=== PATIENT | female | born 1960 | race Two or more races ===

== ENCOUNTER 2020-02-01 06:04 | Outpatient (REF) | payer MEDICARE, MEDICAID, SELFPAY ==
[2020-02-01 08:09] LABS: Alanine Aminotransferase 30 U/L (0-31); Albumin Level 4.3 g/dL (3.5-5.0); Alkaline Phosphatase 85 U/L (39-117); Anion Gap 11 (12-20); Aspartate Amino Transferase 25 U/L (5-31); Bilirubin Total 0.9 mg/dL (0.0-1.0); Blood Urea Nitrogen 10 mg/dL (9-16); Calcium 8.9 mg/dL (8.4-10.2); Carbon Dioxide 30 mmol/L (22-29); Chloride 104 mmol/L (96-108); Cholesterol 210 mg/dL; Estimated Glomerular Filt Rate > 60; Glucose Fasting 93 mg/dL (60-99); HDL Cholesterol 73 mg/dL; LDL Cholesterol Calculated 123 mg/dl; Potassium 4.4 mmol/l (3.3-5.1); Sodium 141 mmol/L (135-145); Total Protein 7.3 g/dL (6.5-8.0); Triglycerides 74 mg/dL
[2020-02-01 08:32] LABS: Vitamin D 25-OH Total 35.6 ng/mL (>30)
== END 2020-02-01 06:05 | disposition home or self-care (01) ==
LOC: HO.LAB 06:04
PROVIDERS: Visit Provider Internal Medicine
DX: E78.00 Pure hypercholesterolemia, unspecified (principal); E55.9 Vitamin D deficiency, unspecified; I10 Essential (primary) hypertension
CPT/HCPCS: 80053; 80061; 82306

== ENCOUNTER 2020-04-27 07:16 | Emergency (ER) | payer MEDICARE, MEDICAID, SELFPAY ==
[2020-04-27 07:41] VITALS: BP 180/98; PULSE 101; RESP 18; TEMP 36.9; O2SAT 98; BMI 27.2
--- NOTE | 2020-04-27 07:45 | ED.LOWEXIN ---
HPI - Extremity Injury (Lower) General Chief Complaint: Extremity Problem Stated Complaint: lt knee pain Time Seen by Provider: 04/27/20 07:44 Source: patient Mode of arrival: ambulatory Limitations: language barrier History of Present Illness HPI Narrative: History obtained by customer service specialist, patient with left knee pain, denies fever, she feel recently because she felt like the knee was weak. She has been seen by urgent care for hip pain but now having knee pain. MD complaint: knee injury Onset (ago): week(s) Injury: Left: knee Severity: moderate Related Data Home Medications Medication Instructions Recorded Confirmed albuterol sulfate 90 mcg/actuation INHALATION 02/16/20 02/16/20 aerosol inhaler calcium carbonate 600 mg calcium 600 mg PO BID 02/16/20 02/16/20 (1,500 mg) tablet hydrochlorothiazide 12.5 mg capsule 12.5 mg PO QAM 02/16/20 02/16/20 Previous Rx's Medication Instructions Recorded atorvastatin 10 mg tablet 20 mg PO DAILY 90 Days #180 tab 02/16/20 lisinopril 40 mg tablet 40 mg PO DAILY 90 Days #90 tab 02/16/20 cholecalciferol (vitamin D3) 50 50 mcg PO DAILY #30 tab 03/27/20 mcg (2,000 unit) tablet fluticasone propionate 110 2 puff PO BID #12 g 03/27/20 mcg/actuation HFA aerosol inhaler tizanidine 4 mg tablet 4 mg PO TID PRN 30 Days #90 tab 04/21/20 cyclobenzaprine 10 mg PO TID #10 tab 04/27/20 naproxen [Naprosyn] 500 mg PO BID #20 tab 04/27/20 Allergies Allergy/AdvReac Type Severity Reaction Status Date / Time soy [Soy] Allergy Intermediate LIP Verified 02/16/20 09:24 SWELLING ( SOY SAUCE ) terbinafine Allergy Unknown Rash Verified 02/16/20 09:24 duloxetine AdvReac Unknown hallucinati Verified 02/16/20 09:24 ons Review of Systems Constitutional: Constitutional: Reports no additional constitutional complaints Eyes: Eyes: Reports no additional eye complaints ENT: Denies dizziness Cardiovascular: Cardiovascular: Reports no additional cardiovascular complaints Respiratory: Respiratory: Reports as per HPI Gastrointestinal: Gastrointestinal: Reports no additional gastrointestinal complaints Genitourinary: Genitourinary: Reports no additional female genitourinary complaints Musculoskeletal: Musculoskeletal: Reports no additional musculoskeletal complaints Integumentary/Breasts: Skin/Breast: Denies rash Neurologic: Reports system reviewed and no additional complaints, except as documented, Denies dizziness and Denies Sensory deficit (Neuro) Psychiatric: Psychiatric: Denies anxiety [facility] Past Medical History Medical History Essential hypertension Hypovitaminosis D Mild asthma Pure hypercholesterolemia Surgical History History of carpal tunnel release History of tubal ligation S/P PATTI-BSO (total abdominal hysterectomy and bilateral salpingo-oophorectomy) Family History Family History (Updated 02/12/20 @ 09:27 by RICHIE Richardson) Father Colon cancer Mother No problems noted. Maternal Aunt Breast cancer Social History Social History Smoking Status: Never smoker Advance Directives: Yes Advance Directives Information Provided: Yes Advance Directives on File: No Physical Exam Vital Signs: Vital Signs: Last Vital Signs Temp 98.5 F 04/27/20 07:41 Pulse 101 H 04/27/20 07:41 Resp 18 04/27/20 07:41 BP 180/98 H 04/27/20 07:41 Pulse Ox 98 04/27/20 07:41 Body Mass Index 27.2 Const: General: healthy appearing Nutritional Appearance: average body habitus Orientation/consciousness: oriented to person and patient oriented x3 Limitations: no limitations HENMT: Head: Yes normal to inspection Ears: external ears normal General nose exam: Normal external nose present Mouth: Normal oral and palatal mucosa present and oropharynx normal Throat: Yes posterior oropharynx normal Eyes: General: appearance normal, both eyes and all related structures Neck: Other: supple Neck: Yes normal visual inspection Chest: Chest palpation & inspection: normal inspection of the chest Resp: Auscultation: clear to auscultation bilaterally Cardio: Jugular venous distension: no JVD Rate: regular rate Rhythm: regular rhythm Heart sounds: S1 normal heart sound present and S2 normal heart sound present GI: Inspection: Yes normal to inspection Palpation (GI): Soft to palpation, nontender and No hepatosplenomegaly present Auscultation: normal bowel sounds Back/Spine/Pelvis: Other: patient with significant sciatica and SI joint pain Skin: General skin exam: no rashes or lesions noted Neuro: General: oriented to person and patient oriented x3 Cranial nerves: Yes CN's II-XII intact bilaterally Motor exam (neuro): 5/5 motor strength present throughout Sensory Exam: No Sensory deficit (Neuro) Extrem: Other: left knee with no swelling, no erythema, Full range of motion, no anterior draw and no posterior draw. Mild tenderness along joint line General: Yes normal to inspection Psych: Appearance: grossly normal Course Course Course Narrative: resting comfortably MDM - Extremity Injury (Lower) MDM Narrative Medical decision making narrative: impression is sciatica xrays negative Imaging Data lumbar: Radiologist's impression: normal lumbar spine knee: Radiologist's impression: mild djd Discharge Plan Discharge Clinical Impression: Sciatica Qualifiers: Laterality: left Qualified Code(s): M54.32 - Sciatica, left side Patient Disposition: Home, Self-Care Instructions: Sciatica (ED) Prescriptions: New cyclobenzaprine 10 mg tablet 10 mg PO TID Qty: 10 RF: 0 naproxen [Naprosyn] 500 mg tablet 500 mg PO BID Qty: 20 RF: 0 No Action cholecalciferol (vitamin D3) 50 mcg (2,000 unit) tablet 50 mcg PO DAILY Qty: 30 RF: 4 fluticasone propionate [Flovent HFA] 110 mcg/actuation HFA aerosol inhaler 2 puff PO BID Qty: 12 RF: 5 tizanidine 4 mg tablet 4 mg PO TID PRN (Reason: muscle spasticity) 30 Days Qty: 90 RF: 5 hydrochlorothiazide 12.5 mg capsule 12.5 mg PO QAM RF: 0 albuterol sulfate 90 mcg/actuation HFA aerosol inhaler inhalation RF: 0 calcium carbonate 600 mg calcium (1,500 mg) tablet 600 mg PO BID RF: 0 atorvastatin 10 mg tablet 20 mg PO DAILY 90 Days Qty: 180 RF: 3 lisinopril 40 mg tablet 40 mg PO DAILY 90 Days Qty: 90 RF: 3 Referrals: Jania Mattson MD [Primary Care Provider] - 2 days
--- NOTE | 2020-04-27 07:51 | XR_ITS ---
EXAMINATION: XR KNEE, LEFT CLINICAL INFORMATION: Knee pain COMPARISON: None TECHNIQUE: Four views of the left knee. FINDINGS: There is no fracture, dislocation, or destructive process. No focal joint narrowing, subchondral sclerosis, erosive change, or chondrocalcinosis. No suprapatellar effusion. Hoffa's fat pad appears normal. There is some minor spurring at quadriceps insertion patella. XR/XR knee LT 4V IMPRESSION: Mild spurring at quadriceps insertion on patella.
--- NOTE | 2020-04-27 07:51 | XR_ITS ---
EXAMINATION: XR LUMBOSACRAL SPINE CLINICAL INFORMATION: Sciatica COMPARISON: None TECHNIQUE: Three views of the lumbosacral spine. FINDINGS: There is normal vertebral segmentation with 5 nonrib-bearing lumbar vertebrae of normal height and normal lumbar lordosis. There is no lumbar vertebral compression, focal disc narrowing or endplate sclerosis or destructive process. No spondylolisthesis or retrolisthesis. No erosive changes. The SI joints and visualized sacrum are unremarkable. XR/XR lumbar spine 2-3V IMPRESSION: Unremarkable examination.
[2020-04-27] MEDS: Ketorolac Tromethamine 60 MG/2 ML VIAL IM (08:54)
[2020-04-27] MEDS: Cyclobenzaprine HCl 10 MG TABLET PO (08:55)
--- NOTE | 2020-04-27 09:34 | PC.NURSE ---
States pain improved after medication. Resting comfortably on stretcher, awaiting discharge home
[2020-04-27 09:46] VITALS: BP 161/90; PULSE 82; RESP 16; TEMP 36.7; O2SAT 95
== END 2020-04-27 10:44 | disposition home or self-care (01) ==
PROVIDERS: Emergency Provider Emergency Medicine; PCP Internal Medicine
DX: M54.32 Sciatica, left side (principal); M25.562 Pain in left knee; Z79.899 Other long term (current) drug therapy
CPT/HCPCS: 72100; 73564; 96372; 99284; J1885

== ENCOUNTER 2020-05-11 05:54 | Outpatient (REF) | payer MEDICARE, MEDICAID, SELFPAY ==
[2020-05-11 07:52] LABS: Alanine Aminotransferase 54 U/L (0-31); Albumin Level 4.5 g/dL (3.5-5.0); Alkaline Phosphatase 81 U/L (39-117); Anion Gap 11 (12-20); Aspartate Amino Transferase 31 U/L (5-31); Bilirubin Total 1.4 mg/dL (0.0-1.0); Blood Urea Nitrogen 12 mg/dL (9-16); Calcium 9.3 mg/dL (8.4-10.2); Carbon Dioxide 31 mmol/L (22-29); Chloride 103 mmol/L (96-108); Cholesterol 160 mg/dL; Estimated Glomerular Filt Rate > 60; Glucose Fasting 96 mg/dL (60-99); HDL Cholesterol 72 mg/dL; LDL Cholesterol Calculated 75 mg/dl; Potassium 4.3 mmol/L (3.3-5.1); Sodium 141 mmol/L (135-145); Total Protein 7.6 g/dL (6.5-8.0); Triglycerides 68 mg/dL
== END 2020-05-11 05:55 | disposition home or self-care (01) ==
LOC: HO.LAB 05:54
PROVIDERS: Visit Provider Internal Medicine
DX: I10 Essential (primary) hypertension (principal)
CPT/HCPCS: 36415; 80053; 80061

== ENCOUNTER 2020-05-24 08:47 | Outpatient (REF) | payer MEDICARE, MEDICAID, SELFPAY | END 2020-05-24 08:48 | disposition home or self-care (01) | LOC: HO.LAB 08:47 | PROVIDERS: PCP Internal Medicine; Visit Provider Internal Medicine | DX: Z20.822 Contact with and (suspected) exposure to COVID-19 (principal) | CPT/HCPCS: 36415; C9803; U0003; U0005 ==

== ENCOUNTER 2020-06-30 08:00 | Outpatient (RCR) | payer MEDICARE, OTHER, MEDICAID, SELFPAY ==
[2020-06-03 08:15] VITALS: BP 178/97; PULSE 82
--- NOTE | 2020-06-30 14:59 | MHC.PT.DC ---
[facility] [place] [facility] [place] [facility] [place] Office [address] Joyce Victor [address] [phone] F: [phone] F: [phone] F: [phone] F: [phone] Physical Therapy Discharge Report Diagnosis: Left knee pain Left low back pain with sciatica Date of Surgery: na Date of Evaluation: 06/03/20 Date of Discharge: 06/30/20 Treatments to Date: 9 Cancellations to Date: 0 No Shows to Date: 0 Discharge Status: Achieved Goals Improved Function Independent with HEP Discharge Summary: Yoly demonstrates some continued tenderness along ITB but feels like she can self manage her symptoms with self massage and ice. She is independent with HEP and confident with DC on this date. Electronically signed by: Bing Hernandez PT, DPT Please sign and return to therapist. Thank you for your referral.
== END 2020-06-30 15:00 | disposition other institution (70) ==
LOC: HO.PT 08:00
PROVIDERS: PCP Internal Medicine; Visit Provider Internal Medicine
DX: M25.562 Pain in left knee (principal); M54.32 Sciatica, left side
CPT/HCPCS: 97110; 97112; 97140; 97162; 97535

== ENCOUNTER 2020-10-21 16:45 | Day surgery (SDC) | payer OTHER, SELFPAY ==
--- NOTE | ~2020-10-21 | XR_ITS ---
EXAMINATION: LEFT TIB-FIB, LEFT ANKLE CLINICAL INFORMATION: Fall with pain COMPARISON: Left foot 02/08/2017 TECHNIQUE: 2 views left tib-fib, 2 views ankle FINDINGS: There is a spiral fracture involving the proximal fibular diaphysis with ventral displacement and posterior angulation of the distal fragment. There is a spiral fracture through the tibial metaphysis with mild dorsal displacement of the distal fracture fragment. An additional fracture through the posterior malleolus is seen. No ankle or knee joint dislocation is detected. A calcaneal plantar spur is noted. XR/XR tibia fibula LT 2V IMPRESSION: Proximal fibula fracture and distal tibia fracture as described above with additional fracture posterior malleolus.
--- NOTE | ~2020-10-21 | XR_ITS ---
EXAMINATION: LEFT TIB-FIB, LEFT ANKLE CLINICAL INFORMATION: Fall with pain COMPARISON: Left foot 02/08/2017 TECHNIQUE: 2 views left tib-fib, 2 views ankle FINDINGS: There is a spiral fracture involving the proximal fibular diaphysis with ventral displacement and posterior angulation of the distal fragment. There is a spiral fracture through the tibial metaphysis with mild dorsal displacement of the distal fracture fragment. An additional fracture through the posterior malleolus is seen. No ankle or knee joint dislocation is detected. A calcaneal plantar spur is noted. XR/XR ankle LT min 3V IMPRESSION: Proximal fibula fracture and distal tibia fracture as described above with additional fracture posterior malleolus.
--- NOTE | ~2020-10-21 | FL_ITS ---
EXAMINATION: XR FL WITH IMAGES CLINICAL INFORMATION: Fractured tibia. COMPARISON: None TECHNIQUE: Fluoroscopy performed by Dr. Tim Nguyen. Fluoroscopy Time: 0.6 minutes. DAP: 0.0404 mGycm2. Images: 4. FINDINGS: Imaging shows a plate and screw device along the medial tibia. FL/FL guidance in OR IMPRESSION: Fluoroscopy and spot films used for plate and screw device placement.
--- NOTE | 2020-10-21 16:38 | ED.LOWEXIN ---
HPI - Extremity Injury (Lower) General Chief Complaint: Extremity Injury, Lower Stated Complaint: left leg injury Time Seen by Provider: 10/21/20 16:31 Source: patient and EMS Mode of arrival: EMS Limitations: language barrier History of Present Illness HPI Narrative: 60-year-old female presents via EMS for visible lower extremity deformity. Patient was sliding down a slide, heard and felt her leg crack when she hit the ground. She did not hit her head or lose consciousness. She does not report any chest pain, arm or shoulder pain, abdominal pain, pelvic pain, shortness of breath, diaphoresis, or back pain. MD complaint: leg injury Onset (ago): hour(s) (Within the hour of arrival) Type of Injury: blunt Place: street/outdoors Severity: severe Severity scale (1-10): 10 Relieving factors: nothing Exacerbating factors: movement and palpation Context: fall and direct blow Associated symptoms: snap/pop sensation, swelling and unable to bear weight Other symptoms: none Treatments prior to arrival: cold therapy Related Data Home Medications Medication Instructions Recorded Confirmed calcium carbonate 600 mg calcium 600 mg PO BID 02/16/20 10/21/20 (1,500 mg) tablet Flovent HFA 2 puff PO BID PRN 10/21/20 10/21/20 ascorbic acid (vitamin C) [Vitamin 500 mg PO DAILY 10/21/20 10/21/20 C] Previous Rx's Medication Instructions Recorded tizanidine 4 mg tablet 4 mg PO TID PRN 30 Days #90 tab 04/21/20 albuterol sulfate 90 mcg/actuation 2 puff INHALATION Q4H PRN 30 Days 07/07/20 aerosol inhaler #18 g atorvastatin 20 mg tablet 20 mg PO BEDTIME 90 Days #90 tab 08/17/20 lisinopril 20 mg tablet 20 mg PO DAILY 90 Days #90 tab 09/05/20 cholecalciferol (vitamin D3) 50 50 mcg PO DAILY #30 tab 09/25/20 mcg (2,000 unit) tablet Allergies Allergy/AdvReac Type Severity Reaction Status Date / Time soy [Soy] Allergy Intermediate LIP Verified 09/05/20 15:53 SWELLING ( SOY SAUCE ) terbinafine Allergy Intermediate Rash Verified 09/05/20 15:53 duloxetine AdvReac Intermediate hallucinati Verified 09/05/20 15:53 ons Review of Systems Review of Systems: Constitutional: No Fever, No Chills ENT/Mouth: No Ear Pain, No Hoarseness, No sore throat Eyes: No Eye Pain, No Swelling, No Redness, No Foreign Body Cardiovascular: No Chest Pain, No SOB Respiratory: No Cough, No Dyspnea Gastrointestinal: No Nausea, No Vomiting, No Diarrhea, No abdominal Pain Genitourinary: No Dysuria, No Hematuria Musculoskeletal: positive left lower extremity pain, No Myalgias, No Joint Swelling Skin: No Skin lacerations, No rash Neuro: No Weakness, No Numbness, No Paresthesias, No Loss of Consciousness, No Dizziness, No Headache Psych: No Anxiety/Panic, No Depression Heme/Lymph: no easy bruising, no Lymphadenopathy Endocrine: No Polyuria, No Polydipsia Yes all other systems are reviewed and are negative [facility], [facility] Past Medical History Attestation statement: The following information was validated with the patient. Source: old records reviewed Medical History (Updated 10/21/20 @ 17:39 by Kaley Bates NP) Essential hypertension Hypovitaminosis D Left knee pain Left sided sciatica Mild asthma Pure hypercholesterolemia Rheumatoid arthritis Surgical History History of carpal tunnel release History of tubal ligation S/P PATTI-BSO (total abdominal hysterectomy and bilateral salpingo-oophorectomy) Family History Family History Father Colon cancer Mother No problems noted. Maternal Aunt Breast cancer Social History Social History Alcohol intake: never Patient Tobacco Use Status: Never used Tobacco e-Cigarette/Vaping Use: Never Used Second Hand Smoke Exposure: No Use of substances other than those prescribed or required for medical reasons: No Advance Directives: No Advance Directives Information Provided: Yes Patient : No Physical Exam Vital Signs: Vital Signs: Last Vital Signs Temp 99.2 F 10/22/20 00:00 Pulse 82 10/22/20 00:00 Resp 16 10/22/20 00:00 BP 165/80 H 10/22/20 00:00 Pulse Ox 99 10/22/20 00:00 Body Mass Index 30.0 Appearance: Alert. Oriented X3. Moderate distress. Eyes: Pupils equal, round and reactive to light. EOMI ENT: Pharynx normal. Moist mucous membranes Neck: Normal inspection. Neck supple. No vertebral tenderness or step-offs CVS: Normal heart rate and rhythm. Pulses normal. Respiratory: No respiratory distress. Breath sounds normal. Abdomen: Soft and nontender. Skin: Skin warm and dry. Normal skin color. Normal skin turgor. Extremities: Visible swelling and external rotation to the left ankle, brisk capillary refill and equal pedal pulses. No tenderness or crepitus to knees, pelvis, chest wall, shoulders, or vertebral spine to palpation. Full range of motion to all other extremities. Neuro: No motor deficit. No sensory deficit. Cranial nerves 2-12 intact. Course Course Course Narrative: 60-year-old female presents via EMS for a visible tib-fib fracture. Will order x-rays. Give pain management with morphine and Zofran. Last meal 3:00 p.m. today. 5:[address] Nguyen, send images over for the tib/fib fractures. 5:39 p.m. plan is to admit to Dr. Nguyen. Will place in a posterior long leg splint, 60 degree angle and elevation on 3 pillows. 6:25 p.m., posterior long leg splint place, brisk capillary refill continues, neurovascularly intact. interpreter translator utilized for all correspondence. Patient verbalized understanding of admission plan. Procedures Orthopedic Splinting/Casting Injury #1: Side: left Lower Extremity Injury Location: lower leg and ankle Lower Extremity Immobilizer: posterior splint Additional Comments: Nonweightbearing, 60 degree angle bend elevated on pillows. MDM - Extremity Injury (Lower) MDM Narrative Medical decision making narrative: Tib-fib fracture Medical Records Attestation: I reviewed the patient's medical records. Lab Data Attestation: I reviewed the patient's lab results. Result diagrams: 10/21/20 16:56 10/21/20 16:56 Labs: Lab Results 10/21/20 10/21/20 10/21/20 Range/Units 16:56 16:56 18:05 WBC 8.2 (4.8-10.8) X10*3/uL RBC 4.82 (4.20-5.50) X10*6/uL Hgb 14.1 (12.0-16.0) g/dl Hct 42.0 (37-47) % MCV 87.1 (80-98) fL MCH 29.3 (27.0-33.0) pg MCHC 33.6 (31.0-35.0) g/dl RDW 11.9 (11.0-16.0) % Plt Count 280 (160-400) X10*3/uL MPV 10.6 (9.4-12.3) fL Immature Gran % (Auto) 0.5 H (0.0-0.4) % Neut % (Auto) 49.1 (45-73) % Lymph % (Auto) 39.7 (20-40) % [place] % (Auto) 8.1 (2-11) % Eos % (Auto) 2.0 (0-4) % Baso % (Auto) 0.6 (0-2) % Lymph # (Auto) 3.3 (1.2-4.9) X10*3/uL [place] # (Auto) 0.7 (0.1-1.2) X10*3/uL Eos # (Auto) 0.2 (0.0-0.4) X10*3/uL Baso # (Auto) 0.1 (0.0-0.2) X10*3/uL Abs Immat Gran (auto) 0.04 H (0.00-0.03) X10*3/uL Absolute Neuts (auto) 4.0 (2.0-8.3) X10*3/uL Absolute Nucleated RBC 0.000 (0.0-0.012) X10*3/uL Nucleated RBC % (auto) 0.0 (0.0-0.2) /100WBC Sodium 142 (135-145) mmol/L Potassium 3.8 (3.3-5.1) mmol/L Chloride 105 (96-108) mmol/L Carbon Dioxide 26 (22-29) mmol/L Anion Gap 15 (12-20) BUN 11 (9-16) mg/dL Creatinine 0.91 (0.5-1.4) mg/dL Estim Creat Clear Calc 58.0 Estimated GFR > 60 Random Glucose 103 (60-115) mg/dL Calcium 9.8 (8.4-10.2) mg/dL Blood Type A Positive Antibody Screen NEGATIVE Imaging Data Tib-fib, ankle x-ray: Attestation: I personally reviewed and interpreted this imaging study as follows: Radiologist's impression: EXAMINATION: LEFT TIB-FIB, LEFT ANKLE CLINICAL INFORMATION: Fall with pain COMPARISON: Left foot 02/08/2017 TECHNIQUE: 2 views left tib-fib, 2 views ankle FINDINGS: There is a spiral fracture involving the proximal fibular diaphysis with ventral displacement and posterior angulation of the distal fragment. There is a spiral fracture through the tibial metaphysis with mild dorsal displacement of the distal fracture fragment. An additional fracture through the posterior malleolus is seen. No ankle or knee joint dislocation is detected. A calcaneal plantar spur is noted. XR/XR ankle LT min 3V IMPRESSION: Proximal fibula fracture and distal tibia fracture as described above with additional fracture posterior malleolus. ECG Data Attestation: I personally reviewed and interpreted this ECG as follows: ECG interpretation date: 10/21/20 ECG interpretation time: 19:00 Interpretation: Vent. rate 85 BPM W[place] interval 164 ms QRS duration 72 ms QT/QTc 382/454 ms P-R-T axes 67 14 27 Normal sinus rhythm Possible Left atrial enlargement Borderline ECG When compared with ECG of 22-OCT-2012 21:32, No significant change was found Critical Care Time Critical Care Time Critical Care Time: Yes Total Critical Care Time: 45 Attestation: I have personally provided critical care time exclusive of time spent on separately billable procedures. Time includes review of laboratory data, radiology results, discussion with consultants, and monitoring for potential decompensation. Interventions were performed as documented. Discharge Plan Discharge Clinical Impression: Closed tibia fracture, Closed fibular fracture Patient Disposition: Admitted As Inpatient Discharge Date/Time: 10/21/20 22:30
[2020-10-21] MEDS: ondansetron HCL 4 MG/2 ML VIAL IVPUSH (16:47)
[2020-10-21] MEDS: Morphine Sulfate 4 MG/ML CARTRIDGE IVPUSH ×2 (16:47→18:24)
[2020-10-21 16:49] VITALS: BP 190/100; BP 203/110; PULSE 101; PULSE 99; RESP 22; TEMP 36.9; O2SAT 100
[2020-10-21 16:59] LABS: MANUAL DIFF FLAG NO
[2020-10-21 17:02] LABS: Basophils Absolute Auto 0.1 X10*3/uL (0.0-0.2); Basophils Percent Auto 0.6 % (0-2); Eosinophils Absolute Auto 0.2 X10*3/uL (0.0-0.4); Hemoglobin 14.1 g/dl (12.0-16.0); Imm Gran Abs Auto 0.04 X10*3/uL (0.00-0.03); Imm Gran Pct Auto 0.5 % (0.0-0.4); Lymphocytes Absolute Auto 3.3 X10*3/uL (1.2-4.9); Lymphocytes Percent Auto 39.7 % (20-40); Mean Corpuscular HGB Conc 33.6 g/dl (31.0-35.0); Mean Corpuscular Hemoglobin 29.3 pg (27.0-33.0); Mean Corpuscular Volume 87.1 fL (80-98); Mean Platelet Volume 10.6 fL (9.4-12.3); Monocytes Absolute Auto 0.7 X10*3/uL (0.1-1.2); Monocytes Percent Auto 8.1 % (2-11); Neutrophils Percent Auto 49.1 % (45-73); Platelet Count 280 X10*3/uL (160-400); Red Blood Count 4.82 X10*6/uL (4.20-5.50); Red Cell Distribution Width 11.9 % (11.0-16.0); White Blood Count 8.2 X10*3/uL (4.8-10.8)
[2020-10-21 17:38] LABS: Anion Gap 15 (12-20); Blood Urea Nitrogen 11 mg/dL (9-16); Calcium 9.8 mg/dL (8.4-10.2); Carbon Dioxide 26 mmol/L (22-29); Chloride 105 mmol/L (96-108); Estimated Glomerular Filt Rate > 60; Glucose Random 103 mg/dL (60-115); Potassium 3.8 mmol/L (3.3-5.1); Sodium 142 mmol/L (135-145)
--- NOTE | 2020-10-21 17:42 | ECG_ITS ---
Test Reason : FRACTURE Blood Pressure : / mmHG Vent. Rate : 085 BPM Atrial Rate : 085 BPM P-R Int : 164 ms QRS Dur : 072 ms QT Int : 382 ms P-R-T Axes : 067 014 027 degrees QTc Int : 454 ms Normal sinus rhythm Possible Left atrial enlargement Borderline ECG When compared with ECG of 22-OCT-2012 21:32, No significant change was found Referred By: Kaley Bates Electronically Signed By:SADIQ MCCOY MD
[2020-10-21 18:05] VITALS: BP 178/96; PULSE 92; RESP 22; O2SAT 99
[2020-10-21] MEDS: oxyCODONE HCl Immed Release 5 MG TABLET PO (18:24)
[2020-10-21] MEDS: 0.9 % Sodium Chloride 1,000 ML 999 ML IVCONT (18:29)
--- NOTE | 2020-10-21 18:32 | PC.NURSE ---
pt a&ox3, iv inserted, labs drawn, pt medicated for pain, cath inserted, pt lle splinted, ivf running per order, will continue to monitor.
--- NOTE | 2020-10-21 19:08 | PC.NURSE ---
Olegario, Norbert Carbajal, at [phone]
[2020-10-21 19:17] VITALS: BP 178/96; PULSE 95; RESP 18; TEMP 36.8; O2SAT 97
--- NOTE | 2020-10-21 19:18 | PC.NURSE ---
patient a&ox3, ivf running per order, pt watching tv, last cath patient/draining clear yellow urine, pt states her pain is well controlled at this time 04/10, will continue to monitor.
[2020-10-21] MEDS: KCl 20 mEq in 5% Dex/0.45% Sod 20 MEQ/1,000 ML IV.SOLN 125 MEQ IVCONT (20:45)
--- NOTE | 2020-10-21 21:25 | PHA.MEDREC ---
Pharmacy Consult ? Medication Reconciliation Pharmacy has completed the medication reconciliation. Patient has a filled history for Lisinopril 40mg and 20mg. Reports that she is only taking Lisinopril 20mg. She also has a recently filled history with Hydrochlorothiazide and she reports she is no longer taking it. Lastly, patient is taking Flovent inhaler BID PRN instead of scheduled. Nika Andrew, PharmD
[2020-10-21 22:23] VITALS: BP 187/97; PULSE 86; TEMP 36.1; O2SAT 98
[2020-10-21 23:09] VITALS: BP 163/89; PULSE 74
[2020-10-21] MEDS: 0.9 % Sodium Chloride Flush 3 ML SYRINGE IVFLUSH (23:58)
[2020-10-22] VITALS (12 sets, daily range): BP systolic 127–194; BP diastolic 68–97; PULSE 77–95; RESP 12–18; TEMP 36.3–37.3; O2SAT 98–100
[2020-10-22 02:38] LABS: COVID-19 Test Negative (Negative); IDNOW Serial# 9DD0AD1C
[2020-10-22] MEDS: HYDROmorphone HCl 0.5 MG/0.5 ML SYRINGE 0.25 MG IVPUSH (04:30)
[2020-10-22] MEDS: KCl 20 mEq in 5% Dex/0.45% Sod 20 MEQ/1,000 ML IV.SOLN 125 MEQ IVCONT ×2 (04:37→21:01)
--- NOTE | 2020-10-22 07:51 | PM.HPOR ---
Assessment and Plan (1) Closed tibia fracture: Status: Acute This is a 60 yo F with HTN, asthma and HLD. She has a displaced left tibia fracture and I recommend ORIF. I discussed this with her. I explained the surgery as well as the risks and benefits including but not limtied to pain, infection, need for further surgery as well as potential medical complications. She expressed understanding and we will proceed forward accordingly. History of Present Illness History of Present Illness Date of Service: 10/22/20 Chief complaint: Tibia Fracture Narrative: Yoly Lala is a 60 year old female who fell off a slide and injured her left tibia. She denies additional injury. She presented to the ED with a left leg deformity and pain and imaging reveleas a distal tibia extra-articular fracture. She was NVI. She was splinted and admitted to the hospital. She denies LOC, CP,SOB. She is ambulatory at baseline. Review of Systems Review of Systems: Yes all other systems are reviewed and are negative Constitutional: Constitutional: Reports no additional constitutional complaints Eyes: Eyes: Reports no additional eye complaints ENT: Reports system reviewed and no additional complaints, except as documented PMF Past Medical History Medical History (Updated 10/21/20 @ 17:39 by Kaley Bates NP) Essential hypertension Hypovitaminosis D Left knee pain Left sided sciatica Mild asthma Pure hypercholesterolemia Rheumatoid arthritis Functional capacity: independent ambulation Family History Family History Father Colon cancer Mother No problems noted. Maternal Aunt Breast cancer Family history: reviewed and not pertinent Surgical History Surgical History History of carpal tunnel release History of tubal ligation S/P PATTI-BSO (total abdominal hysterectomy and bilateral salpingo-oophorectomy) Social History Social History Household Members: Unknown / Unable to assess Housing: Unknown / Unable to assess Unable to assess alcohol history related to: Unknown Alcohol intake: never Patient Tobacco Use Status: Never used Tobacco e-Cigarette/Vaping Use: Never Used Second Hand Smoke Exposure: No Use of substances other than those prescribed or required for medical reasons: Unknown Currently Displaying Signs/Symptoms of Drug Intoxication Withdrawal: No Have you been hit, kicked, punched, or otherwise hurt by someone within the past year? If so, by whom?: No Is there a partner from a previous relationship who is making you feel unsafe now?: No Are you made to feel afraid or neglected: No Advance Directives: No Advance Directives Information Provided: Yes Do you have thoughts of harming others: None Do you have a plan to hurt others: No Plan Recently lost weight without trying: No Nutrition Risks: No Nutritional Risk Patient : No : No Poor oral hygiene: No Meds Allergies Allergy/AdvReac Type Severity Reaction Status Date / Time soy [Soy] Allergy Intermediate LIP Verified 09/05/20 15:53 SWELLING ( SOY SAUCE ) terbinafine Allergy Intermediate Rash Verified 09/05/20 15:53 duloxetine AdvReac Intermediate hallucinati Verified 09/05/20 15:53 ons Active Medications: Current Medications Generic Name Dose Route Start Last Admin Trade Name Freq PRN Reason Stop Dose Admin Acetaminophen 650 mg 10/21/20 18:51 Acetaminophen 325 Mg Tablet PO Q6H PRN Pain, Mild (Pain Scale 1-3) Al Hydroxide/Mg Hydroxide 30 ml 10/21/20 18:51 Magnesium Hydrox/Alum Hydrox 30 Ml Oral.Susp PO Q4H PRN Heartburn/Nausea Albuterol Sulfate 2 puff 10/21/20 22:10 Albuterol Sulfate 90 Mcg 8 Gm Inhaler INHALE Q4H PRN bronchospasm Fluticasone Propionate 2 puff 10/21/20 22:20 Fluticasone Propionate 100 Mcg Blst.W.Dev INHALE RBID PRN Wheezing Hydromorphone HCl 0.25 mg 10/21/20 18:56 10/22/20 04:30 Hydromorphone Hcl 0.5 Mg/0.5 Ml Syringe IVPUSH 0.25 mg Q3H PRN Administration Pain, Severe (Pain Scale 7-10) Potassium Chloride/Dextrose/Sod Cl 20 meq in 1,000 mls @ 125 mls/hr 10/21/20 19:00 10/22/20 04:37 IVCONT 125 mls/hr .Q8H RAINER Administration Ondansetron HCl 4 mg 10/21/20 18:56 Ondansetron Hcl 4 Mg/2 Ml Vial IVPUSH Q6H PRN Nausea Oxycodone HCl 5 mg 10/21/20 18:51 Oxycodone Hcl Immed Release 5 Mg Tablet PO Q4H PRN Pain, Moderate (Pain Scale 4-6 Pharmacy Consult 1 each 10/21/20 19:55 Consult Rx Perform Med Rec MISCELLANE ONCE PRN Consult order Pharmacy Consult 1 each 10/21/20 21:24 Consult Rx Perform Med Rec MISCELLANE ONCE PRN Consult order Sodium Chloride 3 ml 10/22/20 00:00 10/22/20 07:34 0.9 % Sodium Chloride Flush 3 Ml Syringe IVFLUSH Not Given QSHIFT REPLACED BY [facility] Home Medications Medication Instructions Recorded Confirmed Last Taken Type calcium carbonate 600 mg calcium 600 mg PO BID 02/16/20 10/21/20 10/20/20 History (1,500 mg) tablet Flovent HFA 2 puff PO BID PRN 10/21/20 10/21/20 Unknown History ascorbic acid (vitamin C) [Vitamin 500 mg PO DAILY 10/21/20 10/21/20 10/21/20 History C] Physical Exam Vital Signs: Vital Signs: Last Vital Signs Temp 97.6 F 10/22/20 04:00 Pulse 90 10/22/20 04:00 Resp 16 10/22/20 05:30 BP 148/78 H 10/22/20 05:30 Pulse Ox 99 10/22/20 04:00 Body Mass Index 30.0 Const: General: cooperative, healthy appearing and no acute distress Orientation/consciousness: oriented to person, oriented to place and oriented to time HENMT: Head: Yes normal to inspection Eyes: General: appearance normal, both eyes and all related structures Chest: Chest palpation & inspection: normal palpation of entire chest wall Resp: Effort & Inspection: normal respiratory effort and able to speak in complete sentences GI: Inspection: Yes normal to inspection Skin: General skin exam: no rashes or lesions noted Neuro: General: oriented to person, oriented to place and oriented to time Extrem: Other: Toes warm and well perfused. Mild eccymosis and sts. Results Labs Result Diagrams: 10/21/20 16:56 10/21/20 16:56 Labs: Abnormal lab results 10/21/20 Range/Units 16:56 Immature Gran % (Auto) 0.5 H (0.0-0.4) % Abs Immat Gran (auto) 0.04 H (0.00-0.03) X10*3/uL H & H 10/21/20 Range/Units 16:56 Hgb 14.1 (12.0-16.0) g/dl Hct 42.0 (37-47) % All other labs normal. Quality Stroke Does the patient have a stroke diagnosis?: No VTE Prior VTE?: No VTE Risk Level:: Surgical - high VTE Device Contraindication: N/A - Device Ordered VTE Drug Contraindication: Treatment Not Indicated Procedures Date of Service Date of Service: 10/22/20
--- NOTE | 2020-10-22 08:54 | MHC.SHP ---
Pre-Procedural Eval Section A Date of Service: 10/22/20 The patient is an INPATIENT: Yes Changes since office visit: Yes Patient answered all questions; No Cold of Flu in the past 2 weeks, No New Medical Problems and No Changes in Medication The History & Physical has been completed within 30 days and I have reviewed it.: Yes Section B Chief Complaint: Tibia Fracture Allergies: Allergies Allergy/AdvReac Type Severity Reaction Status Date / Time soy [Soy] Allergy Intermediate LIP Verified 09/05/20 15:53 SWELLING ( SOY SAUCE ) terbinafine Allergy Intermediate Rash Verified 09/05/20 15:53 duloxetine AdvReac Intermediate hallucinati Verified 09/05/20 15:53 ons Plan I have reviewed the history and physical and performed a pertinent physical examination on my patient. No changes have occurred unless specified.
--- NOTE | 2020-10-22 09:47 | P.CONAN_ITS ---
[facility] Active Problems Active Problems: All Active Problems (Updated 10/21/20 @ 17:39 by Kaley monique NP) Closed tibia fracture (Acute) Closed fibular fracture (Acute) Left sided sciatica (Acute) Left knee pain (Acute) Mild asthma (Acute) Hypovitaminosis D (Acute) Pure hypercholesterolemia (Acute) Essential hypertension (Acute) Past Medical History Medical History Essential hypertension Hypovitaminosis D Left knee pain Left sided sciatica Mild asthma Pure hypercholesterolemia Rheumatoid arthritis Functional capacity: independent ambulation Family History Family History Father Colon cancer Mother No problems noted. Maternal Aunt Breast cancer Surgical History Surgical History History of carpal tunnel release History of tubal ligation S/P PATTI-BSO (total abdominal hysterectomy and bilateral salpingo-oophorectomy) Social History Social History Household Members: Unknown / Unable to assess Housing: Unknown / Unable to assess Unable to assess alcohol history related to: Unknown Alcohol intake: never Patient Tobacco Use Status: Never used Tobacco e-Cigarette/Vaping Use: Never Used Second Hand Smoke Exposure: No Meds Allergies Allergy/AdvReac Type Severity Reaction Status Date / Time soy [Soy] Allergy Intermediate LIP Verified 09/05/20 15:53 SWELLING ( SOY SAUCE ) terbinafine Allergy Intermediate Rash Verified 09/05/20 15:53 duloxetine AdvReac Intermediate hallucinati Verified 09/05/20 15:53 ons Active Medications: Current Medications Generic Name Dose Route Start Last Admin Trade Name Freq PRN Reason Stop Dose Admin Acetaminophen 650 mg 10/21/20 18:51 Acetaminophen 325 Mg Tablet PO Q6H PRN Pain, Mild (Pain Scale 1-3) Al Hydroxide/Mg Hydroxide 30 ml 10/21/20 18:51 Magnesium Hydrox/Alum Hydrox 30 Ml Oral.Susp PO Q4H PRN Heartburn/Nausea Albuterol Sulfate 2 puff 10/21/20 22:10 Albuterol Sulfate 90 Mcg 8 Gm Inhaler INHALE Q4H PRN bronchospasm Fluticasone Propionate 2 puff 10/21/20 22:20 Fluticasone Propionate 100 Mcg Blst.W.Dev INHALE RBID PRN Wheezing Hydromorphone HCl 0.25 mg 10/21/20 18:56 10/22/20 04:30 Hydromorphone Hcl 0.5 Mg/0.5 Ml Syringe IVPUSH 0.25 mg Q3H PRN Administration Pain, Severe (Pain Scale 7-10) Potassium Chloride/Dextrose/Sod Cl 20 meq in 1,000 mls @ 125 mls/hr 10/21/20 19:00 10/22/20 04:37 IVCONT 125 mls/hr .Q8H RAINER Administration Ondansetron HCl 4 mg 10/21/20 18:56 Ondansetron Hcl 4 Mg/2 Ml Vial IVPUSH Q6H PRN Nausea Oxycodone HCl 5 mg 10/21/20 18:51 Oxycodone Hcl Immed Release 5 Mg Tablet PO Q4H PRN Pain, Moderate (Pain Scale 4-6 Pharmacy Consult 1 each 10/21/20 19:55 Consult Rx Perform Med Rec MISCELLANE ONCE PRN Consult order Pharmacy Consult 1 each 10/21/20 21:24 Consult Rx Perform Med Rec MISCELLANE ONCE PRN Consult order Sodium Chloride 3 ml 10/22/20 00:00 10/22/20 07:34 0.9 % Sodium Chloride Flush 3 Ml Syringe IVFLUSH Not Given QSHIFT [facility] Home Medications Medication Instructions Recorded Confirmed Last Taken Type calcium carbonate 600 mg calcium 600 mg PO BID 02/16/20 10/21/20 10/20/20 History (1,500 mg) tablet Flovent HFA 2 puff PO BID PRN 10/21/20 10/21/20 Unknown History ascorbic acid (vitamin C) [Vitamin 500 mg PO DAILY 10/21/20 10/21/20 10/21/20 History C] Exam Exam Date and Time: October 22, 2020 0947 Height,Weight and Vital Signs: Height 5 ft Weight 69.853 kg Last Vital Signs Temp 97.9 F 10/22/20 07:53 Pulse 92 10/22/20 07:53 Resp 18 10/22/20 07:53 BP 194/97 H 10/22/20 07:53 Pulse Ox 100 10/22/20 07:53 Pertinent Lab Results Pertinent Lab Results: Laboratory Tests 10/21/20 10/21/20 10/21/20 16:56 16:56 18:05 WBC 8.2 RBC 4.82 Hgb 14.1 Hct 42.0 MCV 87.1 MCH 29.3 MCHC 33.6 RDW 11.9 Plt Count 280 MPV 10.6 Immature Gran % (Auto) 0.5 H Neut % (Auto) 49.1 Lymph % (Auto) 39.7 Callahan % (Auto) 8.1 Eos % (Auto) 2.0 Baso % (Auto) 0.6 Lymph # (Auto) 3.3 Callahan # (Auto) 0.7 Eos # (Auto) 0.2 Baso # (Auto) 0.1 Abs Immat Gran (auto) 0.04 H Absolute Neuts (auto) 4.0 Absolute Nucleated RBC 0.000 Nucleated RBC % (auto) 0.0 Sodium 142 Potassium 3.8 Chloride 105 Carbon Dioxide 26 Anion Gap 15 BUN 11 Creatinine 0.91 Estim Creat Clear Calc 58.0 Estimated GFR > 60 Random Glucose 103 Calcium 9.8 COVID-19 ([facility]ELA) COVID-19 Clin Com Blood Type A Positive Antibody Screen NEGATIVE 10/22/20 02:05 WBC RBC Hgb Hct MCV MCH MCHC RDW Plt Count MPV Immature Gran % (Auto) Neut % (Auto) Lymph % (Auto) Callahan % (Auto) Eos % (Auto) Baso % (Auto) Lymph # (Auto) Callahan # (Auto) Eos # (Auto) Baso # (Auto) Abs Immat Gran (auto) Absolute Neuts (auto) Absolute Nucleated RBC Nucleated RBC % (auto) Sodium Potassium Chloride Carbon Dioxide Anion Gap BUN Creatinine Estim Creat Clear Calc Estimated GFR Random Glucose Calcium COVID-19 ([facility]ELA) Negative COVID-19 Clin Com See Note Blood Type Antibody Screen Airway Mallampati Class: II TM Dist: >3cm Neck ROM: Full
--- NOTE | 2020-10-22 10:47 | P.BOP_ITS ---
Brief Operative Note Date of Service: 10/22/20 Pre-op diagnosis: left tibia fracture Post-op diagnosis: same Procedure: ORIF left tibia Implants: Gerry medial tibial locking plate Surgeon: Tim Nguyen MD Anesthesia: GETA Was an [employer] Superintendent used for this Procedure?: No Estimated blood loss (mL): 20 Tourniquet time (min): 60 IV fluids (mL): 1,000 Urine output (mL): 150 Pathology: none sent Condition: stable Disposition: PACU
[2020-10-22] MEDS: oxyCODONE HCl Immed Release 5 MG TABLET 10 MG PO (11:10)
[2020-10-22] MEDS: ondansetron HCL 4 MG/2 ML VIAL IVPUSH (11:18)
--- NOTE | 2020-10-22 14:04 | MHC.CM.PN ---
PATIENT TO FLOOR FROM [facility] CASE MANAGEMENT NAME ON BOARD. PLAN IS HOME WITH SERVICES VERSUS STR. PATIENT ASLEEP AND CASE MANAGEMENT INFORMED HER OF ASSESSMENT ATTEMPT TO OCCUR AT A BETTER TIME PATIENT THANKFUL AND FELL BACK TO SLEEP.
[2020-10-22] MEDS: lisinopriL 20 MG TABLET PO (15:21)
[2020-10-23] VITALS: BP 116/61; PULSE 75; RESP 16; TEMP 37; O2SAT 99
[2020-10-23] MEDS: KCl 20 mEq in 5% Dex/0.45% Sod 20 MEQ/1,000 ML IV.SOLN 125 MEQ IVCONT ×3 (03:48→19:40)
[2020-10-23 04:00] VITALS: BP 140/67; PULSE 73; RESP 16; TEMP 36.5; O2SAT 98
[2020-10-23 08:00] VITALS: BP 146/77; PULSE 84; RESP 18; TEMP 36.4; O2SAT 99
[2020-10-23] MEDS: lisinopriL 20 MG TABLET PO (09:06)
[2020-10-23] MEDS: oxyCODONE HCl Immed Release 5 MG TABLET PO ×3 (09:08→16:56)
[2020-10-23 11:53] VITALS: BP 148/75; PULSE 88; RESP 18; TEMP 36.9; O2SAT 97
--- NOTE | 2020-10-23 13:47 | PC.NURSE ---
F/C removed at 1130 DTV at 1730 OOB to chair with 2 assist. NWB on left
--- NOTE | 2020-10-23 13:51 | PM.PNORT ---
Progress Note: A&P Assessment and plan (1) Closed tibia fracture: Status: Acute Assessment and Plan: POD#1 s/p left tibia ORIF po pain control lovenox and scd PT-TTWB LLE Fall Risk Details Current Medications: Current Medications Generic Name Dose Route Start Last Admin Trade Name Freq PRN Reason Stop Dose Admin Acetaminophen 650 mg 10/21/20 18:51 Acetaminophen 325 Mg Tablet PO Q6H PRN Pain, Mild (Pain Scale 1-3) Al Hydroxide/Mg Hydroxide 30 ml 10/21/20 18:51 Magnesium Hydrox/Alum Hydrox 30 Ml Oral.Susp PO Q4H PRN Heartburn/Nausea Albuterol Sulfate 2 puff 10/21/20 22:10 Albuterol Sulfate 90 Mcg 8 Gm Inhaler INHALE Q4H PRN bronchospasm Enoxaparin Sodium 40 mg 10/23/20 18:00 Enoxaparin Sodium 40 Mg/0.4 Ml Syringe SUBCUT Q24H RAINER Fluticasone Propionate 2 puff 10/21/20 22:20 Fluticasone Propionate 100 Mcg Blst.W.Dev INHALE RBID PRN Wheezing Hydromorphone HCl 0.25 mg 10/21/20 18:56 10/22/20 04:30 Hydromorphone Hcl 0.5 Mg/0.5 Ml Syringe IVPUSH 0.25 mg Q3H PRN Administration Pain, Severe (Pain Scale 7-10) Potassium Chloride/Dextrose/Sod Cl 20 meq in 1,000 mls @ 125 mls/hr 10/21/20 19:00 10/23/20 12:17 IVCONT 125 mls/hr .Q8H RAINER Administration Lisinopril 20 mg 10/22/20 14:00 10/23/20 09:06 Lisinopril 20 Mg Tablet PO 20 mg DAILY RAINER Administration Protocol Ondansetron HCl 4 mg 10/21/20 18:56 Ondansetron Hcl 4 Mg/2 Ml Vial IVPUSH Q6H PRN Nausea Oxycodone HCl 5 mg 10/21/20 18:51 10/23/20 13:06 Oxycodone Hcl Immed Release 5 Mg Tablet PO 5 mg Q4H PRN Administration Pain, Moderate (Pain Scale 4-6 Sodium Chloride 3 ml 10/22/20 00:00 10/23/20 09:05 0.9 % Sodium Chloride Flush 3 Ml Syringe IVFLUSH Not Given QSHIFT RAINER Time Spent With Patient Time: Total time spent is greater than 50% in coordination of care (as documented) at patient's floor/unit and/or counseling patient: Time with patient: less than 15 minutes Subjective Subjective Date of Service: 10/23/20 Principal diagnosis: left tibia fracture Interval history: No overnight events Feeling well Physical Exam Vital Signs: Vital Signs: Last Vital Signs Temp 98.4 F 10/23/20 11:53 Pulse 88 10/23/20 11:53 Resp 18 10/23/20 11:53 BP 148/75 H 10/23/20 11:53 Pulse Ox 97 10/23/20 11:53 Body Mass Index 30.0 Extrem: Other: spling c/d/i. moving toes and SILT Procedures Date of Service Date of Service: 10/23/20 Quality Stroke Does the patient have a stroke diagnosis?: No VTE Prior VTE?: No VTE Risk Level:: Surgical - high VTE Device Contraindication: N/A - Device Ordered VTE Drug Contraindication: Treatment Not Indicated
[2020-10-23 15:39] VITALS: BP 157/77; PULSE 77; RESP 18; TEMP 36.4; O2SAT 98
[2020-10-23] MEDS: Enoxaparin Sodium 40 MG/0.4 ML SYRINGE SUBCUT (16:57)
[2020-10-23 18:49] VITALS: BP 137/73; PULSE 75; RESP 18; TEMP 36.5; O2SAT 98
[2020-10-24] VITALS (8 sets, daily range): BP systolic 119–170; BP diastolic 66–96; PULSE 74–91; RESP 18; TEMP 36.1–37.1; O2SAT 96–99
[2020-10-24] MEDS: KCl 20 mEq in 5% Dex/0.45% Sod 20 MEQ/1,000 ML IV.SOLN 125 MEQ IVCONT ×2 (02:46→15:44)
[2020-10-24] MEDS: oxyCODONE HCl Immed Release 5 MG TABLET PO ×3 (02:46→19:43)
--- NOTE | 2020-10-24 07:52 | PM.PNORT ---
Progress Note: A&P Assessment and plan (1) Closed tibia fracture: Status: Acute Assessment and Plan: Cont pain mgmnt cont lovenox PT/OT - TTWB, ADLs Dispo pending PT eval Fall Risk Details Current Medications: Current Medications Generic Name Dose Route Start Last Admin Trade Name Freq PRN Reason Stop Dose Admin Acetaminophen 650 mg 10/21/20 18:51 Acetaminophen 325 Mg Tablet PO Q6H PRN Pain, Mild (Pain Scale 1-3) Al Hydroxide/Mg Hydroxide 30 ml 10/21/20 18:51 Magnesium Hydrox/Alum Hydrox 30 Ml Oral.Susp PO Q4H PRN Heartburn/Nausea Albuterol Sulfate 2 puff 10/21/20 22:10 Albuterol Sulfate 90 Mcg 8 Gm Inhaler INHALE Q4H PRN bronchospasm Enoxaparin Sodium 40 mg 10/23/20 18:00 10/23/20 16:57 Enoxaparin Sodium 40 Mg/0.4 Ml Syringe SUBCUT 40 mg Q24H RAINER Administration Fluticasone Propionate 2 puff 10/21/20 22:20 Fluticasone Propionate 100 Mcg Blst.W.Dev INHALE RBID PRN Wheezing Hydromorphone HCl 0.25 mg 10/21/20 18:56 10/22/20 04:30 Hydromorphone Hcl 0.5 Mg/0.5 Ml Syringe IVPUSH 0.25 mg Q3H PRN Administration Pain, Severe (Pain Scale 7-10) Potassium Chloride/Dextrose/Sod Cl 20 meq in 1,000 mls @ 125 mls/hr 10/21/20 19:00 10/24/20 02:46 IVCONT 125 mls/hr .Q8H RAINER Administration Lisinopril 20 mg 10/22/20 14:00 10/23/20 09:06 Lisinopril 20 Mg Tablet PO 20 mg DAILY RAINER Administration Protocol Ondansetron HCl 4 mg 10/21/20 18:56 Ondansetron Hcl 4 Mg/2 Ml Vial IVPUSH Q6H PRN Nausea Oxycodone HCl 5 mg 10/21/20 18:51 10/24/20 02:46 Oxycodone Hcl Immed Release 5 Mg Tablet PO 5 mg Q4H PRN Administration Pain, Moderate (Pain Scale 4-6 Sodium Chloride 3 ml 10/22/20 00:00 10/24/20 07:10 0.9 % Sodium Chloride Flush 3 Ml Syringe IVFLUSH Not Given QSHIFT RAINER Time Spent With Patient Time: Total time spent is greater than 50% in coordination of care (as documented) at patient's floor/unit and/or counseling patient: Time with patient: less than 15 minutes Subjective Subjective Date of Service: 10/24/20 Principal diagnosis: left tibia fracture Interval history: POD 2 s/p Left tibia ORIF -no overnight events -resting in bed, has been out of bed to chair -denies cp, sob, palpitations Physical Exam Vital Signs: Vital Signs: Last Vital Signs Temp 98.7 F 10/24/20 03:45 Pulse 74 10/24/20 03:45 Resp 18 10/24/20 03:45 BP 144/74 H 10/24/20 03:45 Pulse Ox 96 10/24/20 03:45 Body Mass Index 30.0 Const: General: cooperative, healthy appearing and no acute distress Resp: Effort & Inspection: normal respiratory effort and able to speak in complete sentences Cardio: Rate: regular rate Peripheral pulses: Peripheral pulses 2+ throughout GI: Palpation (GI): Soft to palpation Skin: General skin exam: no rashes or lesions noted Extrem: Other: Left ankle- splint intact, no erythema , mild swelling , NVI Procedures Date of Service Date of Service: 10/24/20 Quality Stroke Does the patient have a stroke diagnosis?: No VTE Prior VTE?: No VTE Risk Level:: Surgical - high VTE Device Contraindication: N/A - Device Ordered VTE Drug Contraindication: Treatment Not Indicated
[2020-10-24] MEDS: lisinopriL 20 MG TABLET PO (08:17)
[2020-10-24] MEDS: Sennosides 8.6 MG TABLET 17.2 MG PO ×2 (08:17→19:43)
--- NOTE | 2020-10-24 09:37 | MHC.CM.PN ---
PATIENT WILL BE STAYING WITH HER SON, AVERY UPON DISCHARGE. AVERY REPORTEDLY LIVES ON [address] [place] [address] IN [place], [place]. INFORMATION RELAYED TO ROXANNA CHAUDHARI ([phone]) THE [facility] RN FOR [facility]. PHYSICAL THERAPY RECOMMENDS A WALKER AND BEDSDIE COMMODE AND THIS INFORMATION RELAYED TO ROXANNA.
--- NOTE | 2020-10-24 15:43 | PC.NURSE ---
1400 elevated BP. Navi GERONIMO notified. No new orders at this time. OOB to chair. NWB to leg leg maintained. CMS to toes pos. splint and evan wrap intact.
[2020-10-24] MEDS: Enoxaparin Sodium 40 MG/0.4 ML SYRINGE SUBCUT (15:44)
[2020-10-24] MEDS: 0.9 % Sodium Chloride Flush 3 ML SYRINGE IVFLUSH ×2 (15:44→19:44)
[2020-10-25 03:14] VITALS: BP 131/69; PULSE 78; RESP 18; TEMP 36.8; O2SAT 96
[2020-10-25 07:18] VITALS: BP 148/85; PULSE 84; RESP 18; TEMP 36.2; O2SAT 99
[2020-10-25] MEDS: lisinopriL 20 MG TABLET PO (07:29)
[2020-10-25] MEDS: Sennosides 8.6 MG TABLET 17.2 MG PO (07:29)
[2020-10-25] MEDS: 0.9 % Sodium Chloride Flush 3 ML SYRINGE IVFLUSH (07:30)
--- NOTE | 2020-10-25 07:51 | P.DS_ITS ---
DS: Providers Provider Date of Service: 10/25/20 Primary care physician: Jania Barrow MD DS: Diagnosis Discharge Diagnosis (1) Closed tibia fracture: Status: Acute DS: Medications Discharge Medications Home Medications: Home Medications Medication Instructions Recorded Confirmed calcium carbonate 600 mg calcium 600 mg PO BID 02/16/20 10/21/20 (1,500 mg) tablet Flovent HFA 2 puff PO BID PRN 10/21/20 10/21/20 ascorbic acid (vitamin C) [Vitamin 500 mg PO DAILY 10/21/20 10/21/20 C] Previous Rx's Medication Instructions Recorded tizanidine 4 mg tablet 4 mg PO TID PRN 30 Days #90 tab 04/21/20 albuterol sulfate 90 mcg/actuation 2 puff INHALATION Q4H PRN 30 Days 07/07/20 aerosol inhaler #18 g atorvastatin 20 mg tablet 20 mg PO BEDTIME 90 Days #90 tab 08/17/20 lisinopril 20 mg tablet 20 mg PO DAILY 90 Days #90 tab 09/05/20 cholecalciferol (vitamin D3) 50 50 mcg PO DAILY #30 tab 09/25/20 mcg (2,000 unit) tablet acetaminophen 650 mg PO Q6H PRN 30 Days #240 tab 10/25/20 enoxaparin 40 mg SUBCUT Q24H 42 Days #16.8 ml 10/25/20 oxycodone 5 mg PO Q4H PRN 7 Days #56 tab 10/25/20 sennosides [Senna Lax] 17.2 mg PO BID 14 Days #56 tab 10/25/20 DS: Summary Hospital Course Hospital Course: Yoly Lala is a 60 year old female who fell off a slide and injured her left tibia. She denied additional injury. She presented to the ED with a left leg deformity and pain and imaging revelead a distal tibia extra-articular fracture. She was NVI. She was splinted and admitted to the hospital. The patient underwent a successful ORIF left tibia, she was transferred to PACU and then to the floor to recover. During their stay, their vitals were stable, afebrile at 97.2. Labs were unremarkable, H/H 14.1/42.0 . POD 1 she was started on Lovenox for DVT ppx, she also received PT services. Prior to discharge, splint intact and she was discharged home . Time Spent with Patient Time attestation: Total time spent providing and/or coordinating discharge services: Discharge coordination time: Less than 30 minutes Quality: Stroke Does the patient have a stroke diagnosis?: No Physical Exam Vital Signs: Vital Signs: Last Vital Signs Temp 97.2 F 10/25/20 07:18 Pulse 84 10/25/20 07:18 Resp 18 10/25/20 07:18 BP 148/85 H 10/25/20 07:18 Pulse Ox 99 10/25/20 07:18 Body Mass Index 30.0 Const: General: cooperative, healthy appearing and no acute distress Resp: Effort & Inspection: normal respiratory effort and able to speak in complete sentences Cardio: Rate: regular rate Peripheral pulses: Peripheral pulses 2+ throughout GI: Palpation (GI): Soft to palpation Skin: General skin exam: no rashes or lesions noted Extrem: Other: splint intact, sensation and cap refill intact. Discharge Plan Discharge Patient Disposition: Home, Self-Care Referrals: Margaret Phillips PA-C [Physician District Supervisor] - 1 Week (11/03/20 at 10:00 am) Discharge Medications: New enoxaparin 40 mg/0.4 mL Syringe 40 mg subcut Q24H 42 Days Qty: 16.8 RF: 0 sennosides [Senna Lax] 8.6 mg Tablet 17.2 mg PO BID 14 Days Qty: 56 RF: 0 acetaminophen 325 mg Tablet 650 mg PO Q6H PRN (Reason: Pain, Mild (Pain Scale 1-3)) 30 Days Qty: 240 RF: 0 oxycodone 5 mg Tablet 5 mg PO Q4H PRN (Reason: Pain, Moderate (Pain Scale 4-6) 7 Days Qty: 56 RF: 0 Continued tizanidine 4 mg tablet 4 mg PO TID PRN (Reason: muscle spasticity) 30 Days Qty: 90 RF: 5 albuterol sulfate [Ventolin HFA] 90 mcg/actuation HFA aerosol inhaler 2 puff inhalation Q4H PRN (Reason: bronchospasm) 30 Days Qty: 18 RF: 5 atorvastatin 20 mg tablet 20 mg PO BEDTIME 90 Days Qty: 90 RF: 3 cholecalciferol (vitamin D3) 50 mcg (2,000 unit) tablet 50 mcg PO DAILY Qty: 30 RF: 4 ascorbic acid (vitamin C) [Vitamin C] 500 mg Tablet 500 mg PO DAILY RF: 0 Flovent HFA 110 mcg/actuation HFA aerosol inhaler 2 puff PO BID PRN (Reason: Wheezing) RF: 0 calcium carbonate 600 mg calcium (1,500 mg) tablet 600 mg PO BID RF: 0 lisinopril 20 mg tablet 20 mg PO DAILY 90 Days Qty: 90 RF: 1 No Action (DME) walker Misc See Rx Instructions .ROUTE .MEDSUPPLY Qty: 1 RF: 0 (DME) bedside commode Kit See Rx Instructions .ROUTE .MEDSUPPLY Qty: 1 RF: 0 Discharge Orders: Discharge Order (Routine); Ordered 10/25/20 Ordered By: Margaret Phillips Activity Restrictions/Additional Instructions: * TTWB x6 weeks with boot on * Ok to remove boot to ice and elevate above heart level * NWB ROM as tolerated, gait training, isometric quad strength * Keep dressing on at all times-any concerns call Orthopedic office * Continue lovenox for 6 weeks * No tub bath or shower-Keep dressing clean, dry and intact * Follow up with orthopedics in 2 weeks Discharge Date/Time: 10/25/20 11:46
--- NOTE | 2020-10-25 08:23 | MHC.CM.PN ---
PATIENT IS RETURNING HOME - SELF CARE. SHE WILL BE STAYING AT HER SON'S HOME IN [place], HE LIVES ON THE FIRST FLOOR.
--- NOTE | 2020-10-25 09:44 | W.PM.OPN ---
Operative Note Operative Note Date of Service: 10/22/20 Narrative: Pre-op diagnosis: left tibia fracture Post-op diagnosis: same Procedure: ORIF left tibia Implants: [place] medial tibial locking plate Surgeon: Tim Nguyen MD Anesthesia: GETA Was an Floral Manager used for this Procedure?: No Estimated blood loss (mL): 20 Tourniquet time (min): 60 IV fluids (mL): 1,000 Urine output (mL): 150 Pathology: none sent Condition: stable Disposition: PACU Procedure in detail: Patient was brought to the operating room placed supine on the surgical table and prepped and draped in standard sterile fashion. Time-out was called to identify proper site proper procedure proper surgeon IV antibiotics per weight were administered. I began by exsanguinating the limb inflating tourniquet to 300 mm Hg. I then made a small 4 cm incision over the medial distal tibia. Dissection was taken down to the bone and the distal tip of the medial malleolus was identified. I then selected a 12 hole medial locking plate and after periosteal elevation slid this up the medial aspect of the tibia. The fracture but was an oblique fracture with recurvatum deformity. A small lateral kamryn incision was made anterior to the fubula over the distal fragment. I used a sharp tenaculum to reduce the recurvatum deformity and the remaining rotational deformity was acceptable. Therefore I placed my distal locking screws using standard AO technique and biplanar fluoroscopy. I then placed 4 proximal nonlocking screws percutaneously again using biplanar fluoroscopy to confirm hardware position and screw position. Once I was satisfied with the position of the hardware and the fracture reduction I irrigated copiously. A biplanar fluoroscopic views were taken and the patient was placed in sterile dressings after a layered closure with ryan on the skin was performed. Patient was then placed into a well-padded posterior splint extubated brought to recovery room in stable condition there were no known complications.
== END 2020-10-25 11:46 | disposition home or self-care (01) ==
LOC: HO.ED 19:56 → HO.S3 19:58 → HO.ED 10-22 08:55 → HO.S3 10-22 11:40
PROVIDERS: PCP Internal Medicine; Visit Provider Orthopaedic Surgery
PROC: (CPT 27758; principal; 2020-10-22 08:00)
DX: S82.442A Displaced spiral fracture of shaft of left fibula, initial encounter for closed fracture (principal); S82.242A Displaced spiral fracture of shaft of left tibia, initial encounter for closed fracture; W09.0XXA Fall on or from playground slide, initial encounter; Y93.89 Activity, other specified; Y92.9 Unspecified place or not applicable; Y99.8 Other external cause status; I10 Essential (primary) hypertension; J45.909 Unspecified asthma, uncomplicated; E55.9 Vitamin D deficiency, unspecified; Z79.899 Other long term (current) drug therapy; Z88.8 Allergy status to other drugs, medicaments and biological substances
CPT/HCPCS: 27758; 29505; 36415; 51701; 73590; 73610; 80048; 85025; 86850; 86900; 86901; 87635; 93005; 96361; 96374; 96375; 97162; 99024; 99291; C1713; J0690; J1170; J1650; J2270; J2405; J3010

== ENCOUNTER → 2020-10-26 10:00 | Outpatient (BNVA) | payer OTHER, SELFPAY | PROVIDERS: Visit Provider Physician Assistant | DX: S82.202D Unspecified fracture of shaft of left tibia, subsequent encounter for closed fracture with routine healing (principal) | CPT/HCPCS: 99212 ==

== ENCOUNTER 2020-11-03 07:20 | Outpatient (REF) | payer OTHER, SELFPAY ==
--- NOTE | ~2020-11-03 | XR_ITS ---
EXAMINATION: XR TIBIA AND FIBULA, LEFT CLINICAL INFORMATION: Follow-up fibular and tibial fracture. COMPARISON: Right tibia and fibula 10/21/2020 TECHNIQUE: AP and lateral views of the left tibia and fibula were obtained. FINDINGS: Distal tibial fracture has been stabilized with a medial tibial plate and screws along the mid and the distal tibia with fracture fragment and alignment. There is a displaced proximal fibular fracture which is unchanged. No soft tissue abnormality XR/XR tibia fibula LT 2V IMPRESSION: Oblique distal tibial fracture has been stabilized with metallic plate and screws and surgical ryan along the skin line. No change in the mildly displaced oblique proximal fibular fracture compared to 10/21/2020.
== END 2020-11-03 07:21 | disposition home or self-care (01) ==
LOC: HO.HOSX 07:20
PROVIDERS: Visit Provider Physician Assistant
DX: S82.202D Unspecified fracture of shaft of left tibia, subsequent encounter for closed fracture with routine healing (principal); S82.402D Unspecified fracture of shaft of left fibula, subsequent encounter for closed fracture with routine healing; M89.8X6 Other specified disorders of bone, lower leg
CPT/HCPCS: 73590; 99212

== ENCOUNTER 2020-12-01 08:07 | Outpatient (REF) | payer OTHER, SELFPAY ==
--- NOTE | ~2020-12-01 | XR_ITS ---
EXAMINATION: XR TIBIA AND FIBULA, LEFT CLINICAL INFORMATION: Previous fracture. COMPARISON: 11/03/2020 and studies dating back to 10/21/2020 TECHNIQUE: AP and lateral views of the left tibia and fibula were obtained. FINDINGS: There is again noted to be an oblique proximal fibular fracture with stable alignment and displacement of fracture fragments. There is stable appearance of comminuted fracture of the distal tibia with plate and screw fixation. No definite callus formation is appreciated and fracture lines are still evident. XR/XR tibia fibula LT 2V IMPRESSION: Stable alignment of proximal left fibula and distal left tibia fractures. No evidence of bony union.
== END 2020-12-01 08:08 | disposition home or self-care (01) ==
LOC: HO.HOSX 08:07
PROVIDERS: Visit Provider Physician Assistant
DX: S82.202D Unspecified fracture of shaft of left tibia, subsequent encounter for closed fracture with routine healing (principal); S82.832D Other fracture of upper and lower end of left fibula, subsequent encounter for closed fracture with routine healing
CPT/HCPCS: 73590; 99212

== ENCOUNTER 2021-01-12 05:11 | Outpatient (REF) | payer OTHER, SELFPAY ==
--- NOTE | ~2021-01-12 | XR_ITS ---
EXAMINATION: XR TIBIA AND FIBULA, LEFT CLINICAL INFORMATION: Lower leg pain. COMPARISON: Left tibia and fibula radiographs dated 12/01/2020. TECHNIQUE: AP and lateral views of the left tibia and fibula were obtained. FINDINGS: Proximal fibular fracture in unchanged anatomic alignment with minimal new bone/callus formation. Distal tibial fracture in unchanged anatomic alignment with minimal new bone/callus formation. Distal tibial ORIF without acute hardware fracture or perihardware lucency to suggest loosening or infection. No new osseous erosion. No abnormal soft tissue calcification. XR/XR tibia fibula LT 2V IMPRESSION: Proximal fibular and distal tibial fractures in unchanged anatomic alignment with minimal new bone/callus formation. Tibial ORIF without evidence of hardware complication.
== END 2021-01-12 05:12 | disposition home or self-care (01) ==
LOC: HO.HOSX 05:11
PROVIDERS: Visit Provider Physician Assistant
DX: S82.832D Other fracture of upper and lower end of left fibula, subsequent encounter for closed fracture with routine healing (principal)
CPT/HCPCS: 73590; 99212

== ENCOUNTER 2021-01-13 10:10 | Outpatient (REF) | payer OTHER, SELFPAY ==
[2021-01-13 10:49] LABS: COVID-19 Test Negative (Negative)
== END 2021-01-13 10:11 | disposition home or self-care (01) ==
LOC: HO.LAB 10:10
PROVIDERS: PCP Student in an Organized Health Care Education/Training Program; Visit Provider Internal Medicine
DX: Z20.822 Contact with and (suspected) exposure to COVID-19 (principal)
CPT/HCPCS: 36415; 87635; C9803

== ENCOUNTER 2021-01-25 08:17 | Outpatient (REF) | payer OTHER, SELFPAY ==
[2021-01-25 08:38] LABS: COVID-19 Test Positive (Negative)
== END 2021-01-25 08:18 | disposition home or self-care (01) ==
LOC: HO.LAB 08:17
PROVIDERS: PCP Internal Medicine; Visit Provider Internal Medicine
DX: Z20.822 Contact with and (suspected) exposure to COVID-19 (principal)
CPT/HCPCS: 36415; 87635; C9803

== ENCOUNTER 2021-02-17 12:40 | Outpatient (REF) | payer OTHER, SELFPAY ==
[2021-02-17 13:13] LABS: COVID-19 Test Negative (Negative)
== END 2021-02-17 12:41 | disposition home or self-care (01) ==
LOC: HO.LAB 12:40
PROVIDERS: PCP Internal Medicine; Visit Provider Internal Medicine
DX: Z20.822 Contact with and (suspected) exposure to COVID-19 (principal)
CPT/HCPCS: 36415; 87635; C9803

== ENCOUNTER 2021-02-27 08:22 | Outpatient (REF) | payer OTHER, SELFPAY ==
--- NOTE | ~2021-02-27 | XR_ITS ---
EXAMINATION: LOWER LEG AND ANKLE X-RAY, LEFT CLINICAL INFORMATION: Follow-up fracture COMPARISON: Previous x-rays most recent December 2020 TECHNIQUE: 2 views of the left lower leg. 3 views of the left ankle FINDINGS: There is a medial plate and multiple screws transfixing the left distal tibial shaft fracture. Fracture line is still seen. Alignment is unchanged. Orthopedic hardware appears intact and unchanged. There is an old healed posterior malleolar fracture. No other fracture is seen. The ankle mortise is normal. The bones are osteopenic. There are calcaneal spurs. XR/XR tibia fibula LT 2V IMPRESSION: ORIF of left distal tibial shaft fracture. No change from previous exams.
--- NOTE | ~2021-02-27 | XR_ITS ---
EXAMINATION: LOWER LEG AND ANKLE X-RAY, LEFT CLINICAL INFORMATION: Follow-up fracture COMPARISON: Previous x-rays most recent December 2020 TECHNIQUE: 2 views of the left lower leg. 3 views of the left ankle FINDINGS: There is a medial plate and multiple screws transfixing the left distal tibial shaft fracture. Fracture line is still seen. Alignment is unchanged. Orthopedic hardware appears intact and unchanged. There is an old healed posterior malleolar fracture. No other fracture is seen. The ankle mortise is normal. The bones are osteopenic. There are calcaneal spurs. XR/XR ankle LT min 3V IMPRESSION: ORIF of left distal tibial shaft fracture. No change from previous exams.
== END 2021-02-27 08:23 | disposition home or self-care (01) ==
LOC: HO.HOSX 08:22
PROVIDERS: Visit Provider Orthopaedic Surgery
DX: S82.832D Other fracture of upper and lower end of left fibula, subsequent encounter for closed fracture with routine healing (principal); M25.579 Pain in unspecified ankle and joints of unspecified foot
CPT/HCPCS: 73590; 73610; 99212

== ENCOUNTER 2021-04-13 08:06 | Outpatient (REF) | payer OTHER, SELFPAY ==
--- NOTE | ~2021-04-13 | XR_ITS ---
EXAMINATION: LEFT ANKLE AND LEFT TIBIA AND FIBULA. CLINICAL INFORMATION: Left ankle pain. COMPARISON: Left tibia and fibula and left ankle 02/27/2021. TECHNIQUE: 3 views left ankle and 2 views left tibia and fibula. FINDINGS: Left tibia/fibula and left ankle: The ankle mortise and subtalar joints are normal. There is an oblique healing fracture distal fibula stabilized with medial tibial plate and screws. The fractures in alignment. Hypertrophic callus formation along the fracture line and lateral tibia. The posterior malleolar fracture has healed as well. There is a moderate size calcaneal and a small retrocalcaneal enthesophytes. XR/XR tibia fibula LT 2V IMPRESSION: Status post ORIF distal tibial shaft and posterior malleolar fractures. No new fractures seen. Moderate size calcaneal heal and retrocalcaneal enthesophytes.
--- NOTE | ~2021-04-13 | XR_ITS ---
EXAMINATION: LEFT ANKLE AND LEFT TIBIA AND FIBULA. CLINICAL INFORMATION: Left ankle pain. COMPARISON: Left tibia and fibula and left ankle 02/27/2021. TECHNIQUE: 3 views left ankle and 2 views left tibia and fibula. FINDINGS: Left tibia/fibula and left ankle: The ankle mortise and subtalar joints are normal. There is an oblique healing fracture distal fibula stabilized with medial tibial plate and screws. The fractures in alignment. Hypertrophic callus formation along the fracture line and lateral tibia. The posterior malleolar fracture has healed as well. There is a moderate size calcaneal and a small retrocalcaneal enthesophytes. XR/XR ankle LT min 3V IMPRESSION: Status post ORIF distal tibial shaft and posterior malleolar fractures. No new fractures seen. Moderate size calcaneal heal and retrocalcaneal enthesophytes.
== END 2021-04-13 08:07 | disposition home or self-care (01) ==
LOC: HO.HOSX 08:06
PROVIDERS: PCP Internal Medicine; Visit Provider Orthopaedic Surgery
DX: S82.832D Other fracture of upper and lower end of left fibula, subsequent encounter for closed fracture with routine healing (principal); I10 Essential (primary) hypertension; X58.XXXD Exposure to other specified factors, subsequent encounter
CPT/HCPCS: 73590; 73610; 99212

== ENCOUNTER 2021-05-04 09:00 | Outpatient (RCR) | payer OTHER, SELFPAY ==
--- NOTE | 2020-12-21 12:09 | MHC.PT.EP ---
[facility] [place] Office [place] Office [place] Office [address] Joyce Victor [address] [phone] F: [phone] F: [phone] F: [phone] F: [phone] Physical Therapy Plan of Care Date of Evaluation: Date of Surgery: 10/22/20 Diagnosis: other fracture of upper and lower end of unspeicified fibula Assessment: 60 y/o F s/p L distal tibial ORIF 10/22/20 c concurrent proximal fibular fx and is PWB in CAM boot. She sustained L distal tibia extra-articular fx following a fall off a slide. Following tibial ORIF, she was d/c home TTWB and had home PT for 8 weeks. Currently she reports pain and difficulty with standing, walking, crossing guard, and restricted from driving. Examination shows decreased ankle A/PROM, knee AROM WNL, decreased R ankle/knee strength, L distal edema, impaired balance, and impaired gait pattern. Recommend PT 2x/week for 10 weeks to address impairments, implement HEP, and optimize functional mobility. Script states PWB, gait training, ankle and knee ROM, isometric quadstrength. Frequency and Duration: The patient will be seen 2x/week for 10 weeks Short Term Goals: 5 weeks 1. I with HEP 2. Improve L ankle dorsiflexion to 15* to facilitate stairs 3. Improve L ankle plantarflexion to 50* to facilitate walking Flooring Salesperson Goals: 10 weeks: 1. I with HEP and self management of sx 2. Pt will be able to ambulate with LRAD > 30min with pain < 3/10 3. Demonstrate L SLS to 30 seconds to facilitate walking Treatment Plan: Modalities to reduce pain, spasms and effusion. Manual therapy to restore motion and function. Therapeutic exercise to improve strength and flexibility. Neuromuscular re-education for posture and balance. Therapeutic activities to return to functional activities of daily living. Electronically signed by: Yoly Vogt PT Please sign and return to therapist. Thank you for your referral.
--- NOTE | 2021-05-04 09:44 | MHC.PT.DC ---
[facility] [place] Office [place] Office [place] Office [address] Joyce Victor [address] [phone] F: [phone] F: [phone] F: [phone] F: [phone] Physical Therapy Discharge Report Diagnosis: L distal tibial ORIF 10/22/20 c concurrent proximal fibular fx and is PWB in CAM boot Date of Surgery: 10/22/20 Date of Evaluation: 12/21/20 Date of Discharge: 05/04/21 Treatments to Date: Cancellations to Date: 0 No Shows to Date: 0 Discharge Status: Achieved Goals Improved Function Independent with HEP Discharge Summary: Pt has made good progress in regards to ankle AROM, ankle/hip strength, balance and functional mobility. She is I with HEP and is not appropriate for d/c. Reviewed HEP and no further questions. No adverse response noted to exercises. Electronically signed by: Yoly Vogt PT Please sign and return to therapist. Thank you for your referral.
== END 2021-05-04 09:44 | disposition home or self-care (01) ==
LOC: HO.PT 09:00
PROVIDERS: PCP Internal Medicine; Visit Provider Physician Assistant
DX: S82.832D Other fracture of upper and lower end of left fibula, subsequent encounter for closed fracture with routine healing (principal)
CPT/HCPCS: 97110; 97112; 97140; 97161; 97530

== ENCOUNTER 2021-05-20 07:28 | Outpatient (REF) | payer OTHER, SELFPAY ==
[2021-05-20 08:22] LABS: Alanine Aminotransferase 30 U/L (0-31); Albumin Level 4.4 g/dL (3.5-5.0); Alkaline Phosphatase 104 U/L (39-117); Anion Gap 11 (12-20); Aspartate Amino Transferase 28 U/L (5-31); Bilirubin Total 1.9 mg/dL (0.0-1.0); Blood Urea Nitrogen 13 mg/dL (9-16); Calcium 9.6 mg/dL (8.4-10.2); Carbon Dioxide 29 mmol/L (22-29); Chloride 106 mmol/L (96-108); Cholesterol 131 mg/dL; Estimated Glomerular Filt Rate > 60; Glucose Fasting 99 mg/dL (60-99); HDL Cholesterol 62 mg/dL; LDL Cholesterol Calculated 57 mg/dl; Potassium 4.3 mmol/L (3.3-5.1); Sodium 142 mmol/L (135-145); Total Protein 7.6 g/dL (6.5-8.0); Triglycerides 62 mg/dL
[2021-05-24 20:42] LABS: Vitamin D 25-OH, D2 <4 ng/mL; Vitamin D 25-OH, D3 37 ng/mL; Vitamin D 25-OH, Total 37 ng/mL (30-100)
== END 2021-05-20 07:29 | disposition home or self-care (01) ==
LOC: HO.LAB 07:28
PROVIDERS: PCP Internal Medicine; Visit Provider Internal Medicine
DX: E55.9 Vitamin D deficiency, unspecified (principal); E78.5 Hyperlipidemia, unspecified; I10 Essential (primary) hypertension
CPT/HCPCS: 36415; 80053; 80061; 82306

== ENCOUNTER 2021-07-10 11:53 | Outpatient (REF) | payer OTHER, SELFPAY ==
--- NOTE | ~2021-07-10 | XR_ITS ---
EXAMINATION: RIGHT TIBIA AND FIBULA CLINICAL INFORMATION: Status post fracture COMPARISON: 09/11/2021 TECHNIQUE: AP, lateral and oblique views of left tibia and fibula. FINDINGS: No hardware present including compression plate and multiple screws along the distal-middle tibia on the left placed for fracture of the distal diaphysis of left tibia. The fracture line is still visualized. There is good callus formation. Fibula is unremarkable. Ankle mortise is preserved. There are plantar and superior calcaneal spurs. XR/XR tibia fibula LT 2V IMPRESSION: Stable position of hardware. Interval healing of distal tibial fracture with callus formation
--- NOTE | ~2021-07-10 | XR_ITS ---
EXAMINATION: RIGHT TIBIA AND FIBULA CLINICAL INFORMATION: Status post fracture COMPARISON: 09/11/2021 TECHNIQUE: AP, lateral and oblique views of left tibia and fibula. FINDINGS: No hardware present including compression plate and multiple screws along the distal-middle tibia on the left placed for fracture of the distal diaphysis of left tibia. The fracture line is still visualized. There is good callus formation. Fibula is unremarkable. Ankle mortise is preserved. There are plantar and superior calcaneal spurs. XR/XR ankle LT min 3V IMPRESSION: Stable position of hardware. Interval healing of distal tibial fracture with callus formation
== END 2021-07-10 11:54 | disposition home or self-care (01) ==
LOC: HO.HOSX 11:53
PROVIDERS: PCP Internal Medicine; Visit Provider Orthopaedic Surgery
DX: M25.572 Pain in left ankle and joints of left foot (principal); S82.202D Unspecified fracture of shaft of left tibia, subsequent encounter for closed fracture with routine healing; M54.32 Sciatica, left side; M25.562 Pain in left knee; I10 Essential (primary) hypertension; E78.00 Pure hypercholesterolemia, unspecified; E55.9 Vitamin D deficiency, unspecified; Z88.8 Allergy status to other drugs, medicaments and biological substances; Z88.6 Allergy status to analgesic agent; Z91.02 Food additives allergy status
CPT/HCPCS: 73590; 73610; 99212

== ENCOUNTER 2021-11-06 05:52 | Outpatient (REF) | payer OTHER, SELFPAY ==
[2021-11-06 07:44] LABS: Alanine Aminotransferase 22 U/L (0-31); Albumin Level 4.1 g/dL (3.5-5.0); Alkaline Phosphatase 87 U/L (39-117); Anion Gap 12 (12-20); Aspartate Amino Transferase 21 U/L (5-31); Bilirubin Total 1.3 mg/dL (0.0-1.0); Blood Urea Nitrogen 17 mg/dL (9-16); Carbon Dioxide 27 mmol/L (22-29); Chloride 106 mmol/L (96-108); Cholesterol 226 mg/dL; Estimated Glomerular Filt Rate > 60; Glucose Fasting 88 mg/dL (60-99); HDL Cholesterol 73 mg/dL; LDL Cholesterol Calculated 138 mg/dl; Potassium 4.3 mmol/L (3.3-5.1); Sodium 141 mmol/L (135-145); Total Protein 7.2 g/dL (6.5-8.0); Triglycerides 78 mg/dL
[2021-11-06 07:49] LABS: Vitamin D 25-OH Total 36.8 ng/mL (>30)
[2021-11-11 12:51] LABS: Vitamin D 25-OH, D2 <4 ng/mL; Vitamin D 25-OH, D3 34 ng/mL; Vitamin D 25-OH, Total 34 ng/mL (30-100)
== END 2021-11-06 05:53 | disposition home or self-care (01) ==
LOC: HO.LAB 05:52
PROVIDERS: PCP Internal Medicine; Visit Provider Internal Medicine
DX: E55.9 Vitamin D deficiency, unspecified (principal); E78.5 Hyperlipidemia, unspecified; I10 Essential (primary) hypertension
CPT/HCPCS: 36415; 80053; 80061; 82306

== ENCOUNTER 2022-01-02 11:17 | Outpatient (REF) | payer OTHER, SELFPAY ==
--- NOTE | ~2022-01-02 | MM_ITS ---
EXAMINATION: MM SCREENING DIGITAL BREAST TOMOSYNTHESIS, BILATERAL CLINICAL INFORMATION: Screening. Asymptomatic. The lifetime risk of breast cancer based on the Tyrer-Cuzick Model is 7%. COMPARISON: Mammography: 12/30/2019, 09/01/2018, 08/27/2017 TECHNIQUE: Digital breast tomosynthesis is performed in both the craniocaudal and mediolateral oblique views along with computer-aided detection (CAD). Synthesized 2D images are generated from the tomosynthesis. FINDINGS: There are scattered areas of fibroglandular density (ACR BI-RADS breast composition Category b). There are no significant masses, abnormal calcifications, or other abnormalities. Parenchymal pattern is similar to prior studies. There is no developing density or architectural abnormality. The axilla and skin contours are unremarkable. No significant changes. MM/MM tomosynthesis screening BI IMPRESSION: No mammographic evidence of malignancy. ASSESSMENT: BI-RADS 1: Negative RECOMMENDATION: Routine annual mammography screening. This patient's information was entered into a reminder system with a target due date for their next mammogram.
== END 2022-01-02 11:18 | disposition home or self-care (01) ==
LOC: HO.MAMMO 11:17
PROVIDERS: Visit Provider Internal Medicine
DX: Z12.31 Encounter for screening mammogram for malignant neoplasm of breast (principal)
CPT/HCPCS: 77063; 77067

== ENCOUNTER 2023-01-08 10:35 | Outpatient (REF) | payer OTHER, SELFPAY | END 2023-01-08 10:36 | disposition home or self-care (01) | LOC: HO.MAMMO 10:35 | PROVIDERS: PCP Internal Medicine; Visit Provider Internal Medicine | DX: Z12.31 Encounter for screening mammogram for malignant neoplasm of breast (principal) | CPT/HCPCS: 77063; 77067 ==

== ENCOUNTER → 2023-01-08 10:45 | Outpatient (BNV) | payer OTHER, SELFPAY | PROVIDERS: PCP Internal Medicine; Visit Provider Radiology Diagnostic Radiology | DX: Z12.31 Encounter for screening mammogram for malignant neoplasm of breast (principal) | CPT/HCPCS: 77063; 77067 ==

== ENCOUNTER 2023-01-28 07:35 | Day surgery (SDC) | payer OTHER, SELFPAY ==
[2023-01-24 11:11] VITALS: BMI 32.2
--- NOTE | 2023-01-28 08:31 | HO.ANESPROP2 ---
HPI - Anesthesia Eval Consult details Narrative: for colonoscopy [facility] Active Problems Active Problems: All Active Problems (Updated 01/02/22 @ 12:30 by Jania Barrow MD) Physical exam (Acute) Fracture of distal end of fibula with routine healing (Acute) Closed fracture of tibia with routine healing (Acute) Mild major depression, single episode (Acute) Moderate persistent asthma (Acute) Closed tibia fracture (Acute) Closed fibular fracture (Acute) Left sided sciatica (Acute) Left knee pain (Acute ~04/13/21) Mild asthma (Acute) Hypovitaminosis D (Acute) Pure hypercholesterolemia (Acute) Essential hypertension (Acute) Past Medical History Medical History Mild major depression, single episode Moderate persistent asthma Rheumatoid arthritis Left sided sciatica Left knee pain (~04/13/21) Mild asthma Hypovitaminosis D Pure hypercholesterolemia Essential hypertension Family History Family History Father Colon cancer Mother No problems noted. Maternal Aunt Breast cancer Family history of problems with anesthesia: No Surgical History Surgical History S/P ORIF (open reduction internal fixation) fracture S/P PATTI-BSO (total abdominal hysterectomy and bilateral salpingo-oophorectomy) History of carpal tunnel release History of tubal ligation History of Problems with Anesthesia: No Social History Social History Household Members: Unknown / Unable to assess Housing: House (currently staying with son due to fall) Unable to assess alcohol history related to: Unknown Alcohol intake: never Patient Tobacco Use Status: Never used Tobacco e-Cigarette/Vaping Use: Never Used Second Hand Smoke Exposure: No Advance Directives: No Advance Directives Information Provided: Yes service: No Current occupational status: disabled Current occupation: rt handed Cognitive needs: No Hearing needs: No Vision needs: No Meds Allergies Allergy/AdvReac Type Severity Reaction Status Date / Time soy [Soy] Allergy Intermediate LIP Verified 09/26/22 11:20 SWELLING ( SOY SAUCE ) terbinafine Allergy Intermediate Rash Verified 09/26/22 11:20 duloxetine AdvReac Intermediate hallucinati Verified 09/26/22 11:20 ons Exam Exam Date and Time: January 28, 2023 0831 Height,Weight and Vital Signs: Height 5 ft Weight 74.843 kg Airway Mallampati Class: II TM Dist: >3cm Neck ROM: Full Heart: rrr Lungs: cta Assessment and Plan Assessment Anesthesia Assessment: Anesthesia Plan Discussed and Chart Reviewed Final Anesthetic Review Family History of Problems with Anesthesia: No History of Problems with Anesthesia: No NPO: Yes ASA Class: III Final Preanesthetic Review: No Changes in Pt Med Stat, Meds/Allgs Chart Reviewed, Consent Obtained/Reviewed and Anes Risks/Benef Reviewed Patient Risk: Low Procedure Risk: Low Anesthetic Plan Anesthetic Plan: MAC: Disposition: Standard PACU
--- NOTE | 2023-01-28 08:45 | MHC.SHP ---
Pre-Procedural Eval Section A Date of Service: 01/28/23 The patient is an INPATIENT: No The History & Physical has been completed within 30 days and I have reviewed it.: No Section B Chief Complaint: colon cancer screening Relevant Family History (Specify if Yes): Yes Relevant Social History: None Present Medications: see Short Stay Collaborative assessment Medical History: Significant History (Essential hypertension Hypovitaminosis D Left knee pain (~04/13/21) Left sided sciatica Mild asthma Mild major depression, single episode Moderate persistent asthma Pure hypercholesterolemia Rheumatoid arthritis) History of Previous Operations: Relevant previous surgery/procedure and date(s) (History of carpal tunnel release History of tubal ligation S/P ORIF (open reduction internal fixation) fracture S/P PATTI-BSO (total abdominal hysterectomy and bilateral salpingo-oophorectomy)) Allergies: Allergies Allergy/AdvReac Type Severity Reaction Status Date / Time soy [Soy] Allergy Intermediate LIP Verified 09/26/22 11:20 SWELLING ( SOY SAUCE ) terbinafine Allergy Intermediate Rash Verified 09/26/22 11:20 duloxetine AdvReac Intermediate hallucinati Verified 09/26/22 11:20 ons Review of Systems Sugical H&P ROS: Negative: Constitution, Cardiovascular, Respiratory and Gastrointestinal Exam Surgical H&P Exam: Normal: Heart, Normal: Lungs, Normal: Extremities and Normal: Abdomen Plan Diagnosis/Plan: Unchanged I have reviewed the history and physical and performed a pertinent physical examination on my patient. No changes have occurred unless specified. Time Spent With Patient Time: Total time managing care of this patient today ____ minutes.
[2023-01-28 08:52] VITALS: BP 149/87; PULSE 87; RESP 18; TEMP 36.5; O2SAT 98
--- NOTE | 2023-01-28 09:32 | HO.ANESPROP2 ---
[facility] Active Problems Active Problems: All Active Problems (Updated 01/02/22 @ 12:30 by Jania Barrow MD) Physical exam (Acute) Fracture of distal end of fibula with routine healing (Acute) Closed fracture of tibia with routine healing (Acute) Mild major depression, single episode (Acute) Moderate persistent asthma (Acute) Closed tibia fracture (Acute) Closed fibular fracture (Acute) Left sided sciatica (Acute) Left knee pain (Acute ~04/13/21) Mild asthma (Acute) Hypovitaminosis D (Acute) Pure hypercholesterolemia (Acute) Essential hypertension (Acute) Past Medical History Medical History Mild major depression, single episode Moderate persistent asthma Rheumatoid arthritis Left sided sciatica Left knee pain (~04/13/21) Mild asthma Hypovitaminosis D Pure hypercholesterolemia Essential hypertension Family History Family History Father Colon cancer Mother No problems noted. Maternal Aunt Breast cancer Family history of problems with anesthesia: No Surgical History Surgical History S/P ORIF (open reduction internal fixation) fracture S/P PATTI-BSO (total abdominal hysterectomy and bilateral salpingo-oophorectomy) History of carpal tunnel release History of tubal ligation History of Problems with Anesthesia: No Social History Social History Household Members: Unknown / Unable to assess Housing: House (currently staying with son due to fall) Unable to assess alcohol history related to: Unknown Alcohol intake: never Patient Tobacco Use Status: Never used Tobacco e-Cigarette/Vaping Use: Never Used Second Hand Smoke Exposure: No Have you been hit, kicked, punched, or otherwise hurt by someone within the past year? If so, by whom?: No Are you DNR?: No Advance Directives: No Advance Directives Information Provided: Yes Recently lost weight without trying: No Eating poorly because of decreased appetite: No Nutrition Risks: No Nutritional Risk Patient : No service: No Current occupational status: disabled Current occupation: rt handed Cognitive needs: No Hearing needs: No Vision needs: No Meds Allergies Allergy/AdvReac Type Severity Reaction Status Date / Time soy [Soy] Allergy Intermediate LIP Verified 09/26/22 11:20 SWELLING ( SOY SAUCE ) terbinafine Allergy Intermediate Rash Verified 09/26/22 11:20 duloxetine AdvReac Intermediate hallucinati Verified 09/26/22 11:20 ons Active Medications: Current Medications Lactated Ringer's (Lr) 1,000 mls @ 100 mls/hr IVCONT .Q10H RAINER Exam Exam Date and Time: January 28, 2023 0932 Height,Weight and Vital Signs: Height 5 ft Weight 74.843 kg Last Vital Signs Temp 97.7 F 01/28/23 08:52 Pulse 87 01/28/23 08:52 Resp 18 01/28/23 08:52 BP 149/87 H 01/28/23 08:52 Pulse Ox 98 01/28/23 08:52 O2 Del Method Room Air 01/28/23 08:52 Airway Mallampati Class: II TM Dist: >3cm Neck ROM: Full Heart: rrr Lungs: cta Assessment and Plan Assessment Anesthesia Assessment: Anesthesia Plan Discussed and Chart Reviewed Final Anesthetic Review Family History of Problems with Anesthesia: No History of Problems with Anesthesia: No NPO: Yes ASA Class: II Final Preanesthetic Review: No Changes in Pt Med Stat, Meds/Allgs Chart Reviewed and Consent Obtained/Reviewed Patient Risk: Intermediate Procedure Risk: Intermediate Anesthetic Plan Anesthetic Plan: MAC:
--- NOTE | 2023-01-28 09:36 | W.PM.OPN ---
Operative Note Operative Note Date of Service: 01/28/23 Narrative: COLONOSCOPY TILL CECUM WITH BIOPSIES, SNARE POLYPECTOMY AND SUBMUCOSAL INJECTION Pre-op diagnosis: Colon cancer screening (negative colon in Apr, 2013) Post-op diagnosis:?Colon polyps, diverticulosis, hemorrhoids Endoscopist:? Solo Mcnamara MD Anesthesia:?MAC Consent: Indications for the procedure and potential complications of bleeding, perforation, reaction to medications and missed diagnosis were discussed with the patient and informed consent was obtained. Instrument: Olympus PCF H 190 L variable stiffness pediatric colonoscope Monitoring: Vital signs and clinical assessment, intermittent blood pressure monitoring, continuous EKG monitoring, Pulse oximetry and Carbon Dioxide monitoring were done throughout the procedure. Please see anesthesia flowsheet. Colon withdrawl time was 21 minutes. Procedure: The patient was placed in the left lateral decubitis position and pre-procedure medications were administered. After a digital rectal examination of the ano-rectum, the video colonoscope was inserted into the rectum and advanced through the colon to the cecum. The colonoscope was slowly withdrawn in a retrograde panoramic fashion and the colon mucosa was carefully examined including a retroflexed view of the rectum. Findings and interventions are described below. Procedure Difficulty: Without difficulty Findings: Terminal Ileum: Not evaluated Cecum: A 2 cms flat polyp raised with 5 cc of [place] and removed with a hot snare. A 2-3 mm diminutive appearing polyp - removed with a cold bx Ascending Colon: Normal Transverse Colon: Normal Descending Colon: Normal Sigmoid Colon: Moderate diverticulosis Rectum: A few 4-5 mm diminutive appearing polyps - two removed with a cold bx Ano-rectum: Small internal hemorrhoids Colon preparation: Good Impression and Post Procedure Diagnosis: Colonoscopy Findings: One medium sized and three small polyps removed Moderate diverticulosis seen in the sigmoid colon Small hemorrhoids on retroflexed exam. Plan: I will send a letter with pathology results Repeat Colonoscopy interval based on path results - in 3 years if polyps are adenomatous and 10 years if polyps are hyperplastic. Above findings were reviewed with the patient and colon polyps and diverticulosis handouts were given in the discharge area
[2023-01-28 10:33] VITALS: BP 132/87; PULSE 88; RESP 16; TEMP 36.1; O2SAT 97
[2023-01-28 10:48] VITALS: BP 139/79; PULSE 811; RESP 18; TEMP 36.3; O2SAT 98
== END 2023-01-28 11:39 | disposition home or self-care (01) ==
PROVIDERS: PCP Internal Medicine; Visit Provider Internal Medicine Gastroenterology
PROC: 0DJD8ZZ Inspection of Lower Intestinal Tract, Via Natural or Artificial Opening Endoscopic (ICD-10-PCS; CPT 45378; principal; 2023-01-28 09:20)
DX: Z12.11 Encounter for screening for malignant neoplasm of colon (principal); D12.0 Benign neoplasm of cecum; K62.1 Rectal polyp; K57.30 Diverticulosis of large intestine without perforation or abscess without bleeding; K64.8 Other hemorrhoids; I10 Essential (primary) hypertension; E78.00 Pure hypercholesterolemia, unspecified; J45.909 Unspecified asthma, uncomplicated; E55.9 Vitamin D deficiency, unspecified; Z79.899 Other long term (current) drug therapy
CPT/HCPCS: 45385; 45380; 45381; 88305

== ENCOUNTER → 2023-01-28 07:35 | Outpatient (BNV) | payer OTHER, SELFPAY | PROVIDERS: PCP Internal Medicine; Visit Provider Internal Medicine Gastroenterology | DX: Z12.11 Encounter for screening for malignant neoplasm of colon (principal); K57.30 Diverticulosis of large intestine without perforation or abscess without bleeding; K64.8 Other hemorrhoids; D12.0 Benign neoplasm of cecum; D12.8 Benign neoplasm of rectum | CPT/HCPCS: 45380; 45381; 45385 ==

== ENCOUNTER 2023-01-31 09:33 | Outpatient (AMB) | payer OTHER, SELFPAY ==
--- NOTE | 2023-01-31 09:44 | AM.OFFVISNUR ---
Intake Intake Visit Reasons: Flu vaccine Allergies soy [Soy] Allergy (Intermediate, Verified 09/26/22 11:20) LIP SWELLING ( SOY SAUCE ) terbinafine Allergy (Intermediate, Verified 09/26/22 11:20) Rash duloxetine Adverse Reaction (Intermediate, Verified 09/26/22 11:20) hallucinations Office Procedures Flu Questionnaire Does the patient have a severe egg allergy?: No Does the patient have severe life threatening allergies?: No Does the patient have a fever or illness today?: No Has the patient ever had Guillain-Campbell Syndrome?: No Has the patient ever had any past reaction to a flu shot?: No Immunizations flu vacc [id number] 6mos up(PF) 60 mcg(15 mcgx4)/0.5 mL IM syringe Performing Provider: Jania Barrow MD Per[facility] Administered by: Roselyn Angulo RN on 01/31/23 09:44 Dose Route Admin Location Dispensed Lot Number Expiration Date NDC [employer] 0.5 mL IM Left Deltoid 0.5 mL [id number] 09/29/23 [id number] [employer] VIS Given Date VIS Provided VIS Publication Date 01/31/23 Single Vaccine 20 Eligibility Eligibility Date Funding Source Not [facility] Eligible 01/31/23 Private Coding Assessment & Plan Assessment & Plan Orders: Orders Influenza [id number] Immunization Today Z23 - Encounter for immunization
== END 2023-01-31 09:46 | disposition home or self-care (01) ==
PROVIDERS: PCP Internal Medicine; Visit Provider Internal Medicine
DX: Z23 Encounter for immunization (principal)
CPT/HCPCS: 90471; 90686

== ENCOUNTER 2023-02-06 10:02 | Outpatient (AMB) | payer OTHER, SELFPAY ==
[2023-02-06 10:04] VITALS: BP 132/78; PULSE 87; O2SAT 100; BMI 32.2
--- NOTE | 2023-02-06 10:04 | MHC.PC.OV ---
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 Accompanied by: Self / Same As Patient Allergies soy [Soy] Allergy (Intermediate, Verified 02/06/23 10:34) LIP SWELLING ( SOY SAUCE ) terbinafine Allergy (Intermediate, Verified 02/06/23 10:34) Rash duloxetine Adverse Reaction (Intermediate, Verified 02/06/23 10:34) hallucinations Medication List - Last Reconciled 02/06/23 by Jania Barrow MD albuterol sulfate 90 mcg/actuation (Ventolin HFA) 2 puffs PO Q4H PRN 30 days amlodipine 5 mg PO DAILY 90 days cholecalciferol (vitamin D3) 50 mcg PO DAILY fluticasone propionate 110 mcg/actuation (Flovent HFA) 2 puffs PO BID PRN 30 days lisinopril 40 mg PO DAILY 90 days sennosides (senna) 8.6 mg PO BEDTIME PRN 30 days Tobacco use date assessed: 02/06/23 Dental Screening Dental Screen Date: 02/06/23 Did you have a dental visit in the last 12 months?: Yes Did you have a dental problem in the last 6 months where you did not have access to dental care?: No Was dental information given to patient?: Patient has dentist HPI HPI Comments History of Present Illness Details This is a 62-year-old female that comes for her physical exam. Last mammogram was 2022 and was normal. Last colonoscopy was 01/28/2023 showing tubular adenoma and next colonoscopy should be 2025. No need for Pap smears due to hysterectomy for benign reasons. No chest pain or shortness of breath. Blood pressure stable. [facility] Medical History Mild major depression, single episode Moderate persistent asthma Rheumatoid arthritis Left sided sciatica Left knee pain (~04/13/21) Mild asthma Hypovitaminosis D Pure hypercholesterolemia Essential hypertension Surgical History (Updated 02/06/23 @ 10:39 by Jania Barrow MD) H/O colonoscopy S/P ORIF (open reduction internal fixation) fracture S/P PATTI-BSO (total abdominal hysterectomy and bilateral salpingo-oophorectomy) History of carpal tunnel release History of tubal ligation Family History (Updated 02/06/23 @ 10:40 by Jania Barrow MD) Father Colon cancer Mother COPD (chronic obstructive pulmonary disease) Maternal Aunt Breast cancer Social History Household Members: Unknown / Unable to assess Housing: House (currently staying with son due to fall) Unable to assess alcohol history related to: Unknown Alcohol intake: never Patient Tobacco Use Status: Never used Tobacco e-Cigarette/Vaping Use: Never Used Second Hand Smoke Exposure: No service: No Current occupational status: disabled Current occupation: rt handed Cognitive needs: No Hearing needs: No Vision needs: No Questionnaire PHQ-9 Over the last 2 weeks, how often have you been bothered by any of the following problems? 1. Little interest or pleasure in doing things: not at all 2. Feeling down, depressed, or hopeless: not at all 3. Trouble falling or staying asleep, or sleeping too much: not at all 4. Feeling tired or having little energy: not at all 5. Poor appetite or overeating: not at all 6. Feeling bad about yourself - or that you are a failure or have let yourself or your family down: not at all 7. Trouble concentrating on things, such as reading the newspaper or watching television: not at all 8. Moving or speaking so slowly that other people could have noticed. Or the opposite - being so fidgety or restless that you have been moving around a lot more than usual: not at all 9. Thoughts that you would be better off or of hurting yourself in some way: not at all Total score: 0 Depression Screening Interpretation: Negative Depression Screening Done: Yes 57645 - PHQ-9 Billing: Yes Source: Developed by Drs. Juan Pablo Orellana, Shannon Garcia, Jonathan Westfall and colleagues, with an educational steve from [employer]. Thrive Questionnaire Date Thrive assessed: 02/06/23 I am a: Patient What is your living situation today?: I have a steady place to live Within the past 12 months, did the food you bought not last and you didn't have the money to get more?: Never true Within the past 12 months, did you worry whether your food would run out before you got money to buy more?: Never true Do you have trouble paying for medicines?: No Do you have trouble getting transportation to medical appointments?: No Do you have trouble paying your heating and electricity bill?: No Do you have trouble taking care of your child, family member or friend?: No Do you have trouble with day-to-day activities such as bathing, preparing meals, shopping, managing finances, etc.?: No Are you currently unemployed and looking for a job?: No Are you interested in more education?: No AUDIT C Alcohol Use Questionnaire (AUDIT-C) 1. How often do you have a drink containing alcohol?: Never Total Score: 0 Score Reviewed/Action Taken: No DAYANA-7 AMB Questionnaire DAYANA-7 Date DAYANA - 7 assessed: 02/06/23 Feeling nervous, anxious, or on edge: 0 = Not at all Not being able to stop or control worryin = Not at all Worrying too much about different things: 0 = Not at all Trouble relaxin = Not at all Being so restless that it is hard to sit still: 0 = Not at all Becoming easily annoyed or irritable: 0 = Not at all Feeling afraid as if something awful might happen: 0 = Not at all Total DAYANA-7 score (0-4 normal; 5-9 mild; 10-14 moderate; 15-21 severe): 0 Source: Developed by Drs. Juan Pablo Orellana, Shannon aGrcia, Jonathan Westfall and colleagues, with an educational steve from [employer]. DAYANA-7 Assessment Billing DAYANA-7 Assessment Tool: DAYANA-7 Assessment 45584 Review of Systems Const All systems reviewed & are unremarkable except as noted in HPI and below Eyes Reports no additional complaints, Denies change in vision and Denies other visual disturbances Card Denies chest pain at rest, Denies chest pain with activity, Denies edema, Denies irregular heart rhythm, Denies claudication, Denies dyspnea, Denies dyspnea on exertion, Denies orthopnea, Denies paroxysmal nocturnal dyspnea and Denies slow heart rate Resp Denies cough, Denies dyspnea and Denies dyspnea on exertion GI Denies abdominal pain, Denies change in bowel habits, Denies excessive flatus, Denies nausea and Denies vomiting Denies urinary incontinence, Denies urinary hesitancy and Denies urinary urgency Musc Denies abnormal gait, Denies atrophy, Denies deformity and Denies limited range of motion Skin/Breast Denies bleeding lesions, Denies changing lesions and Denies rash Neuro Denies abnormal gait and Denies lack of coordination Aller/Immun Denies urticaria Physical exam (Primary Care) Vital Signs: Last Vital Signs Pulse 87 02/06/23 10:04 BP 132/78 02/06/23 10:04 Pulse Ox 100 02/06/23 10:04 Oxygen Delivery Method Room Air 02/06/23 10:04 BMI result Body Mass Index 32.2 Tobacco/Smoking Status: Tobacco use Status Tobacco use date assessed 02/06/23 02/06/23 10:09 Patient Tobacco Use Status Never used Tobacco 02/06/23 10:09 e-Cigarette/Vaping Use Never Used 02/06/23 10:09 PHQ-9: PHQ-9 Score PHQ-9: Total score 0 02/06/23 10:09 Depression Screening Interpretation: Negative Thrive Assessment: Date of Thrive Assessment Date Thrive assessed 02/06/23 02/06/23 10:09 Const Orientation/consciousness: patient oriented x3 HENMT Head: Yes normal to inspection, Yes normocephalic and Yes atraumatic Ears: external ears normal Eyes General: appearance normal, both eyes and all related structures Eyelids: Yes eyelids normal Conjunctivae: conjunctivae normal Neck Neck: Yes normal visual inspection and Yes supple Resp Effort & Inspection: normal respiratory effort Auscultation: clear to auscultation bilaterally Cardio Jugular venous distension: no JVD Rate: regular rate Rhythm: regular rhythm Heart sounds: S1 normal heart sound present and S2 normal heart sound present GI Inspection: Yes normal to inspection Palpation (GI): Soft to palpation and nontender Auscultation: normal bowel sounds Skin General skin exam: no rashes or lesions noted Neuro General: patient oriented x3 and no focal motor deficits Extrem General: Yes full ROM Psych Appearance: grossly normal Assessment and Plan Assessment & Plan (1) Physical exam: Code(s): Z00.00 - Encounter for general adult medical examination without abnormal findings Plan: Repeat in a year. Coding Level of Care Code Est Pt Prev Care 40-64y(14184) Diagnoses Physical exam Z00.00 Additional Codes DAYANA-7 Assessment Billing - DAYANA-7 Assessment Tool: DAYANA-7 Assessment 01817 ([id number]) Time Spent (min) 31
== END 2023-02-06 10:49 | disposition home or self-care (01) ==
PROVIDERS: Visit Provider Internal Medicine
DX: Z00.00 Encounter for general adult medical examination without abnormal findings (principal)
CPT/HCPCS: 99396

== ENCOUNTER 2023-02-27 05:52 | Outpatient (REF) | payer OTHER, SELFPAY ==
[2023-02-27 08:23] LABS: Alanine Aminotransferase 38 U/L (0-31); Albumin Level 4.3 g/dL (3.5-5.0); Alkaline Phosphatase 83 U/L (39-117); Anion Gap 13 (12-20); Aspartate Amino Transferase 28 U/L (5-31); Bilirubin Total 1.1 mg/dL (0.0-1.0); Blood Urea Nitrogen 12 mg/dL (9-16); Calcium 9.5 mg/dL (8.4-10.2); Carbon Dioxide 28 mmol/L (22-29); Chloride 104 mmol/L (96-108); Cholesterol 253 mg/dL (<200); Estimated Glomerular Filt Rate > 60; Glucose Fasting 94 mg/dL (60-99); HDL Cholesterol 71 mg/dL (>40); LDL Cholesterol Calculated 162 mg/dL (<100); Potassium 3.9 mmol/L (3.3-5.1); Sodium 141 mmol/L (135-145); Total Protein 7.8 g/dL (6.5-8.0); Triglycerides 102 mg/dL (<150)
[2023-02-27 08:31] LABS: Vitamin D 25-OH Total 36.5 ng/mL (>30)
== END 2023-02-27 05:53 | disposition home or self-care (01) ==
LOC: HO.LAB 05:52
PROVIDERS: PCP Internal Medicine; Visit Provider Internal Medicine
DX: E78.5 Hyperlipidemia, unspecified (principal); J45.40 Moderate persistent asthma, uncomplicated; E55.9 Vitamin D deficiency, unspecified
CPT/HCPCS: 36415; 80053; 80061; 82306

== ENCOUNTER 2023-06-11 14:39 | Emergency (ER) | payer OTHER, SELFPAY ==
--- NOTE | ~2023-06-11 | US_ITS ---
EXAMINATION: US VENOUS ULTRASOUND WITH DOPPLER LOWER EXTREMITY, LEFT CLINICAL INFORMATION: Left thigh pain. No trauma. COMPARISON: None available. TECHNIQUE: Ultrasound of the deep veins is performed from the hip to the calf with compression sonography and color and pulse Doppler assessment. Spectral analysis with color-flow imaging is performed. FINDINGS: There is normal venous compression and respiratory variation.. The visualized common femoral vein, superficial femoral vein, profunda femoral vein, popliteal vein, and the mid calf peroneal and posterior tibial veins shows no evidence of deep venous thrombosis. The contralateral common femoral vein demonstrates normal respiratory variation. US/US venous duplex LE LT IMPRESSION: No DVT demonstrated in the left lower extremity.
[2023-06-11 14:50] VITALS: BP 173/95; PULSE 110; RESP 16; TEMP 36.3; O2SAT 99; BMI 33.3
--- NOTE | 2023-06-11 14:56 | ED.GENADULT ---
HPI - General Adult General Chief complaint: Extremity Injury, Lower Stated complaint: Leg pain, blood clot? 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 She reports her symptoms started yesterday. She reports that she was lifting a been for the onset of her pain Denies any numbness, tingling, weakness. Denies any swelling to the left leg She has a history of sciatica and feels this is related Denies any abdominal pain, nausea vomiting, diarrhea Denies any urinary complaints She reports that while sitting in the ER her symptoms have been improving Related Data Previous Rx's Medication Instructions Recorded fluticasone propionate 110 2 puff PO BID PRN Wheezing 30 days 09/10/21 mcg/actuation HFA aerosol inhaler #12 grams (Flovent HFA) lisinopril 40 mg tablet 40 mg PO DAILY 90 days #90 tabs 07/27/22 albuterol sulfate 90 mcg/actuation 2 puff PO Q4H PRN for dyspnea 30 03/11/23 aerosol inhaler (Ventolin HFA) days #18 grams cholecalciferol (vitamin D3) 50 50 mcg PO DAILY #90 tabs 03/17/23 mcg (2,000 unit) tablet sennosides 8.6 mg tablet (senna) 8.6 mg PO BEDTIME PRN constipation 05/04/23 30 days #30 tabs amlodipine 5 mg tablet 5 mg PO DAILY 90 days #90 tabs 05/30/23 cyclobenzaprine 10 mg tablet 10 mg PO TID PRN muscle spasm #20 06/11/23 tabs Allergies Allergy/AdvReac Type Severity Reaction Status Date / Time soy [Soy] Allergy Intermediate LIP Verified 02/06/23 10:34 SWELLING ( SOY SAUCE ) terbinafine Allergy Intermediate Rash Verified 02/06/23 10:34 duloxetine AdvReac Intermediate hallucinati Verified 02/06/23 10:34 ons Review of Systems Constitutional: Constitutional: Denies chills and Denies fever(s) ENT: Denies sore throat Cardiovascular: Cardiovascular: Denies chest pain and Denies dyspnea Respiratory: Respiratory: Denies cough and Denies dyspnea Gastrointestinal: Gastrointestinal: Denies abdominal pain, Denies nausea and Denies vomiting Musculoskeletal: Musculoskeletal: Reports back pain, Reports limited range of motion and Denies stiffness Integumentary/Breasts: Skin/Breast: Denies rash PMFSH Past Medical History Medical History (Updated 06/11/23 @ 20:18 by James Oquendo) Mild major depression, single episode Moderate persistent asthma Rheumatoid arthritis Left sided sciatica Left knee pain (~04/13/21) Mild asthma Hypovitaminosis D Pure hypercholesterolemia Essential hypertension Surgical History (Updated 02/06/23 @ 10:39 by Jania Barrow MD) H/O colonoscopy S/P ORIF (open reduction internal fixation) fracture S/P PATTI-BSO (total abdominal hysterectomy and bilateral salpingo-oophorectomy) History of carpal tunnel release History of tubal ligation Family History Family History (Updated 02/06/23 @ 10:40 by Jania Barrow MD) Father Colon cancer Mother COPD (chronic obstructive pulmonary disease) Maternal Aunt Breast cancer Social History Social History Household Members: Unknown / Unable to assess Housing: House (currently staying with son due to fall) Unable to assess alcohol history related to: Unknown Alcohol intake: never Comment: medicated in pacu Patient Tobacco Use Status: Never used Tobacco e-Cigarette/Vaping Use: Never Used Second Hand Smoke Exposure: No Advance Directives: No Advance Directives Information Provided: No service: No Current occupational status: disabled Current occupation: rt handed Cognitive needs: No Hearing needs: No Vision needs: No Physical Exam ED Vital Signs: Vital Signs - 24 hr 06/11/23 14:50 06/11/23 19:23 Temperature 97.4 F 98.0 F Pulse Rate 110 H 88 Respiratory Rate 16 14 Blood Pressure 173/95 H 159/90 H Pulse Oximetry 99 98 Oxygen Delivery Method Room Air Room Air BMI result Body Mass Index 33.3 Const General: healthy appearing, comfortable, no acute distress, alert and awake Nutritional Appearance: well nourished Orientation/consciousness: patient oriented x3 HENMT Head: Yes normocephalic and Yes atraumatic Eyes Eyelids: Yes eyelids normal Conjunctivae: conjunctivae normal Sclerae: sclerae normal Corneas: corneas normal Pupils: Equal, round and reactive pupils present EOM: EOMs intact bilaterally Neck Neck: Yes full ROM Resp Effort & Inspection: normal respiratory effort, able to speak in complete sentences and not labored GI Inspection: No distended Palpation (GI): Soft to palpation, not firm, nontender, no guarding and not rigid Back/Spine/Pelvis Other: No significant tenderness to the lumbar region of left lumbar paraspinous region. Negative straight leg raise Skin General skin exam: elasticity normal Neuro General: patient oriented x3 Cranial nerves: Yes Equal, round and reactive pupils present and Yes Bilaterally intact EOM present Cognition (Neuro): normal cognition Extrem Other: Moving all extremities well without any obvious deformities. No lower extremity edema, no palpable cords Course Course Course Narrative: RME: 62-year-old female presents ED for left thigh pain without any trauma. Left thigh tender to palpation. Patient has normal gait. Left lower extremity normal temperature. Ultrasound ordered Medical Decision Making Medical Decision Making MDM Narrative: 62-year-old female presents for evaluation of left lower back pain that radiates to her left leg. Her exam is reassuring. No signs for cauda equina syndrome, no trauma. She does endorse lifting a heavy been which may have contributed to the onset her pain. She had an ultrasound not ruled out DVT. She will be discharged with symptomatic care Differential Diagnosis Differential Diagnoses: The differential diagnosis associated with the presentation includes Muscle strain Sciatica DVT Back pain Obstructive uropathy Radiology Impression Discussion of test interpretation with radiology: I have reviewed the radiologist's reading. Radiologist Impression: No DVT demonstrated in the left lower extremity Discharge Plan Discharge Clinical Impression: Left sided sciatica Patient Disposition: Home, Self-Care Instructions: Acute Low Back Pain (ED) Additional Instructions: Use Motrin or Tylenol for pain. Use cyclobenzaprine as needed for muscle spasms. This may make you sleepy, did not drink alcohol or drive after taking it Follow-up with your primary doctor, return for new or worsening symptoms Prescriptions: New cyclobenzaprine 10 mg tablet 10 mg PO TID PRN (Reason: muscle spasm) Qty: 20 0RF No Action Flovent HFA 110 mcg/actuation HFA aerosol inhaler 2 puff PO BID PRN (Reason: Wheezing) 30 Days Qty: 12 1RF lisinopril 40 mg tablet 40 mg PO DAILY 90 Days Qty: 90 3RF albuterol sulfate [Ventolin HFA] 90 mcg/actuation HFA aerosol inhaler 2 puff PO Q4H PRN (Reason: for dyspnea) 30 Days Qty: 18 5RF cholecalciferol (vitamin D3) 50 mcg (2,000 unit) tablet 50 mcg PO DAILY Qty: 90 1RF sennosides [senna] 8.6 mg tablet 8.6 mg PO BEDTIME PRN (Reason: constipation) 30 Days Qty: 30 1RF amlodipine 5 mg tablet 5 mg PO DAILY 90 Days Qty: 90 1RF Interventions: ED Discharge Assessment Last Done: 06/11/23 20:24 Discharge Date/Time: 06/11/23 20:26
[2023-06-11 19:23] VITALS: BP 159/90; PULSE 88; RESP 14; TEMP 36.7; O2SAT 98
== END 2023-06-11 20:26 | disposition home or self-care (01) ==
PROVIDERS: Emergency Provider Student in an Organized Health Care Education/Training Program; PCP Internal Medicine
DX: M54.42 Lumbago with sciatica, left side (principal); R60.0 Localized edema; M79.605 Pain in left leg; Z79.899 Other long term (current) drug therapy
CPT/HCPCS: 93971; 99283; 99284

== ENCOUNTER 2023-06-18 08:15 | Outpatient (AMB) | payer OTHER, SELFPAY ==
--- NOTE | 2023-06-18 08:17 | A.OFFPC_ITS ---
Vital Signs 06/18/23 08:19 Height 5 ft Weight 169 lb BMI 33.0 BP 128/70 Blood Pressure Location Lt brachial Position Sitting Intake Visit Reasons: ED follow up, DM follow up Intake Note: Patient here for a follow up Bp and [facility] [place] ED follow up 06/10 left sciatica pain Resource Program Teacher Required: No Accompanied by: Self / Same As Patient Allergies soy [Soy] Allergy (Intermediate, Verified 06/18/23 08:25) LIP SWELLING ( SOY SAUCE ) terbinafine Allergy (Intermediate, Verified 06/18/23 08:25) Rash duloxetine Adverse Reaction (Intermediate, Verified 06/18/23 08:25) hallucinations Medication List - Last Reconciled 06/18/23 by Jania Barrow MD albuterol sulfate 90 mcg/actuation (Ventolin HFA) 2 puffs PO Q4H PRN 30 days amlodipine 5 mg PO DAILY 90 days cholecalciferol (vitamin D3) 50 mcg PO DAILY cyclobenzaprine 10 mg PO TID PRN lisinopril 40 mg PO DAILY 90 days sennosides (senna) 8.6 mg PO BEDTIME PRN 30 days Tobacco use date assessed: 06/18/23 Dental Screening Dental Screen Date: 06/18/23 Did you have a dental visit in the last 12 months?: Yes Did you have a dental problem in the last 6 months where you did not have access to dental care?: No Was dental information given to patient?: Patient has dentist HPI HPI Comments History of Present Illness Details This a 62-year-old female with hypertension, pure hypercholesterolemia and low vitamin-D that comes today for hospital discharge follow-up with discharge date 06/11/2023 due to left-sided sciatica. She said she started having lower back pain radiating to the left leg few days before going to ER. No fever, bowel or bladder incontinence. She thinks she was lifting heavy bins few days before. Cyclobenzaprine relieved the pain. Pain was reproducible with straight leg test. I will refer her non urgently to pain management. Blood pressure stable. Last cholesterol was elevated and this will be repeated. On vitamin-D supplements for her low vitamin-D and vitamin-D levels will also be repeated. While in the hospital ultrasound venous duplex was done ruling out DVT of left leg. [facility] Medical History (Updated 06/18/23 @ 08:41 by Jania Barrow MD) Mild major depression, single episode Moderate persistent asthma Rheumatoid arthritis Left sided sciatica Left knee pain (~04/13/21) Mild asthma Hypovitaminosis D Pure hypercholesterolemia Essential hypertension Surgical History H/O colonoscopy S/P ORIF (open reduction internal fixation) fracture S/P PATTI-BSO (total abdominal hysterectomy and bilateral salpingo-oophorectomy) History of carpal tunnel release History of tubal ligation Family History Father Colon cancer Mother COPD (chronic obstructive pulmonary disease) Maternal Aunt Breast cancer Social History Household Members: Unknown / Unable to assess Housing: House (currently staying with son due to fall) Alcohol intake: never Comment: medicated in pacu Patient Tobacco Use Status: Never used Tobacco e-Cigarette/Vaping Use: Never Used Second Hand Smoke Exposure: No service: No Current occupational status: disabled Current occupation: rt handed Cognitive needs: No Hearing needs: No Vision needs: No Questionnaire PHQ-9 Over the last 2 weeks, how often have you been bothered by any of the following problems? 1. Little interest or pleasure in doing things: not at all 2. Feeling down, depressed, or hopeless: not at all 3. Trouble falling or staying asleep, or sleeping too much: not at all 4. Feeling tired or having little energy: not at all 5. Poor appetite or overeating: not at all 6. Feeling bad about yourself - or that you are a failure or have let yourself or your family down: not at all 7. Trouble concentrating on things, such as reading the newspaper or watching television: not at all 8. Moving or speaking so slowly that other people could have noticed. Or the opposite - being so fidgety or restless that you have been moving around a lot more than usual: not at all 9. Thoughts that you would be better off or of hurting yourself in some way: not at all Total score: 0 Depression Screening Interpretation: Negative Depression Screening Done: Yes 32853 - PHQ-9 Billing: Yes Source: Developed by Drs. Juan Pablo Orellana, Shannon Garcia, Jonathan Westfall and colleagues, with an educational steve from [employer]. Thrive Questionnaire Date Thrive assessed: 06/18/23 I am a: Patient What is your living situation today?: I have a steady place to live Within the past 12 months, did the food you bought not last and you didn't have the money to get more?: Never true Within the past 12 months, did you worry whether your food would run out before you got money to buy more?: Never true Do you have trouble paying for medicines?: No Do you have trouble getting transportation to medical appointments?: No Do you have trouble paying your heating and electricity bill?: No Do you have trouble taking care of your child, family member or friend?: No Do you have trouble with day-to-day activities such as bathing, preparing meals, shopping, managing finances, etc.?: No Are you currently unemployed and looking for a job?: No Are you interested in more education?: No Please select the resources that you would like help with: None Currently or been in a relationship where the following occur: no concerns reported THRIVE Score: 0 AUDIT C Alcohol Use Questionnaire (AUDIT-C) 1. How often do you have a drink containing alcohol?: Never Total Score: 0 Score Reviewed/Action Taken: No DAYANA-7 AMB Questionnaire DAYANA-7 Date DAYANA - 7 assessed: 06/18/23 Feeling nervous, anxious, or on edge: 0 = Not at all Not being able to stop or control worryin = Not at all Worrying too much about different things: 0 = Not at all Trouble relaxin = Not at all Being so restless that it is hard to sit still: 0 = Not at all Becoming easily annoyed or irritable: 0 = Not at all Feeling afraid as if something awful might happen: 0 = Not at all Total DAYANA-7 score (0-4 normal; 5-9 mild; 10-14 moderate; 15-21 severe): 0 Source: Developed by Drs. Juan Pablo Orellana, Jonathan Haro and colleagues, with an educational steve from [employer]. DAYANA-7 Assessment Billing DAYANA-7 Assessment Tool: DAYANA-7 Assessment 39725 Review of Systems Const All systems reviewed & are unremarkable except as noted in HPI and below Eyes Reports no additional complaints, Denies change in vision and Denies other visual disturbances Card Denies chest pain at rest, Denies chest pain with activity, Denies edema, Denies irregular heart rhythm, Denies claudication, Denies dyspnea, Denies dyspnea on exertion, Denies orthopnea, Denies paroxysmal nocturnal dyspnea and Denies slow heart rate Resp Denies cough, Denies dyspnea and Denies dyspnea on exertion GI Denies abdominal pain, Denies change in bowel habits, Denies excessive flatus, Denies nausea and Denies vomiting Denies urinary incontinence, Denies urinary hesitancy and Denies urinary urgency Physical exam (Primary Care) Vital Signs: Last Vital Signs BP 128/70 06/18/23 08:19 BMI result Body Mass Index 33.0 Tobacco/Smoking Status: Tobacco use Status Tobacco use date assessed 06/18/23 06/18/23 08:24 Patient Tobacco Use Status Never used Tobacco 06/18/23 08:24 e-Cigarette/Vaping Use Never Used 06/18/23 08:24 PHQ-9: PHQ-9 Score PHQ-9: Total score 0 06/18/23 08:24 Depression Screening Interpretation: Negative Thrive Assessment: Date of Thrive Assessment Date Thrive assessed 06/18/23 06/18/23 08:24 Currently or been in a relationship where the following occur: no concerns reported Eyes General: appearance normal, both eyes and all related structures Eyelids: Yes eyelids normal Conjunctivae: conjunctivae normal Neck Neck: Yes normal visual inspection and Yes supple Resp Effort & Inspection: normal respiratory effort Auscultation: clear to auscultation bilaterally Cardio Jugular venous distension: no JVD Rate: regular rate Rhythm: regular rhythm Heart sounds: S1 normal heart sound present and S2 normal heart sound present Back/Spine/Pelvis Thoracic/Lumbar Spine: straight leg raise positive left at 60 degrees Extrem General: Yes full ROM Assessment and Plan Assessment & Plan (1) Hospital discharge follow-up: Code(s): Z09 - Encounter for follow-up examination after completed treatment for conditions other than malignant neoplasm Plan: Discharge date 06/11/2023 due to low back pain radiating to the left leg secondary to left-sided sciatica. Ultrasound was ordered to rule out left leg DVT. Was given cyclobenzaprine that markedly improved the pain. (2) Left sided sciatica: Code(s): M54.32 - Sciatica, left side Plan: Referred to pain management. (3) Essential hypertension: Code(s): I10 - Essential (primary) hypertension Plan: Continue lisinopril and amlodipine. Blood pressure goal is equal or less than 130/80. (4) Pure hypercholesterolemia: Code(s): E78.00 - Pure hypercholesterolemia, unspecified Plan: Start low-cholesterol diet. Repeat lipid panel. (5) Hypovitaminosis D: Code(s): E55.9 - Vitamin D deficiency, unspecified Plan: Continue vitamin-D supplements. Repeat vitamin-D levels. Orders: Orders Vitamin D 25-OH Total Today E55.9 - Vitamin D deficiency, unspecified Comprehensive Sesser. Panel Fast Today I10 - Essential (primary) hypertension Lipid Panel Today E78.5 - Hyperlipidemia, unspecified Referrals Pain Management Referral M54.32 - Sciatica, left side Coding Level of Care Code TCM Mod MDM <= 7 Days Diagnoses Hospital discharge follow-up Z09 Left sided sciatica M54.32 Essential hypertension I10 Pure hypercholesterolemia E78.00 Hypovitaminosis D E55.9 Additional Codes DAYANA-7 Assessment Billing - DAYANA-7 Assessment Tool: DAYANA-7 Assessment 39210 ([id number]) Time Spent (min) 22
[2023-06-18 08:19] VITALS: BP 128/70; BMI 33.0
== END 2023-06-18 08:36 | disposition home or self-care (01) ==
PROVIDERS: PCP Internal Medicine; Visit Provider Internal Medicine
DX: M54.32 Sciatica, left side (principal); I10 Essential (primary) hypertension; E78.00 Pure hypercholesterolemia, unspecified; E55.9 Vitamin D deficiency, unspecified
CPT/HCPCS: 99214

== ENCOUNTER 2023-06-19 05:54 | Outpatient (REF) | payer OTHER, SELFPAY ==
[2023-06-19 07:59] LABS: Alanine Aminotransferase 27 U/L (0-31); Albumin Level 4.3 g/dL (3.5-5.0); Alkaline Phosphatase 83 U/L (39-117); Anion Gap 11 (12-20); Aspartate Amino Transferase 24 U/L (5-31); Bilirubin Total 0.8 mg/dL (0.0-1.0); Blood Urea Nitrogen 11 mg/dL (9-16); Calcium 9.7 mg/dL (8.4-10.2); Carbon Dioxide 29 mmol/L (22-29); Chloride 105 mmol/L (96-108); Cholesterol 233 mg/dL (<200); Estimated Glomerular Filt Rate > 60; Glucose Fasting 88 mg/dL (60-99); HDL Cholesterol 72 mg/dL (>40); LDL Cholesterol Calculated 140 mg/dL (<100); Potassium 4.2 mmol/L (3.3-5.1); Sodium 141 mmol/L (135-145); Total Protein 7.7 g/dL (6.5-8.0); Triglycerides 109 mg/dL (<150)
[2023-06-19 08:07] LABS: Vitamin D 25-OH Total 37.7 ng/mL (>30)
== END 2023-06-19 05:55 | disposition home or self-care (01) ==
LOC: HO.LAB 05:54
PROVIDERS: PCP Internal Medicine; Visit Provider Internal Medicine
DX: E55.9 Vitamin D deficiency, unspecified (principal); E78.5 Hyperlipidemia, unspecified; I10 Essential (primary) hypertension
CPT/HCPCS: 36415; 80053; 80061; 82306

== ENCOUNTER 2023-06-20 10:32 | Outpatient (REF) | payer OTHER, SELFPAY ==
--- NOTE | ~2023-06-20 | XR_ITS ---
EXAMINATION: XR SACROILIAC JOINTS CLINICAL INFORMATION: Sacrococcygeal disorders COMPARISON: None available. TECHNIQUE: 3 views of the sacroiliac joints FINDINGS: Bones and soft tissues are normal. No fracture. Alignment is anatomic. Sacroiliac joint spaces are well-maintained without erosions or surrounding sclerosis. XR/XR sacroiliac joint min 3V IMPRESSION: Normal sacroiliac joints.
== END 2023-06-20 10:33 | disposition home or self-care (01) ==
LOC: HO.XRAY 10:32
PROVIDERS: PCP Internal Medicine; Referring Provider Internal Medicine; Visit Provider Registered Nurse Emergency
DX: M53.3 Sacrococcygeal disorders, not elsewhere classified (principal)
CPT/HCPCS: 72202; 99202

== ENCOUNTER 2023-06-20 10:32 | Outpatient (AMB) | payer OTHER, SELFPAY ==
--- NOTE | 2023-06-20 10:43 | MHC.OFFVIS ---
Intake Vital Signs 06/20/23 10:45 Height 5 ft Weight 169 lb BMI 33.0 BP 148/92 H Blood Pressure Location Lt brachial Position Sitting Pulse 92 Pulse Source Pulse Oximeter Pulse Oximetry (%) 99 Oxygen Delivery Method Room Air Intake Visit Reasons: Sciatica, left side Intake Note: Pain today 6/10 Saddle Tree Stitcher Required: Yes Saddle Tree Stitcher Language: General Lot Attendant Name: [employer] #[id number] Accompanied by: Self / Same As Patient Allergies soy [Soy] Allergy (Intermediate, Verified 06/20/23 10:53) LIP SWELLING ( SOY SAUCE ) terbinafine Allergy (Intermediate, Verified 06/20/23 10:53) Rash duloxetine Adverse Reaction (Intermediate, Verified 06/20/23 10:53) hallucinations HPI HPI Comments History of Present Illness Details Yoly is a very pleasant 62-year-old female who presents the office today for left lower back and left leg pain Visit was completed with it technical specialist [employer] #[id number] via tablet This pain started approximately 2 weeks ago after lifting a heavy bin. Patient was evaluated in the emergency room, ultrasound was performed for DVT and was negative, she was given cyclobenzaprine. She followed up with her primary care doctor who referred her here for evaluation management Patient denies having x-ray, physical therapy, nonsteroidal anti-inflammatory medications. She is taking Tylenol [id number] with minimal relief. She reports some relief with the cyclobenzaprine but says that it makes her very sleepy. Patient endorses pain over left PSIS with radiation down the thigh to the level of the knee. Pain is worse with walking and climbing stairs. Pain today is rated as a 6/10 Patient denies radiation of the pain past the level of the knee, she denies red flag symptoms including new loss of bowel, bladder or saddle anesthesia. In terms of muscle damage condition is described as aching, cramping, squeezing, throbbing. Pain is negatively impacting patient's enjoyment of life, walking, recreational activities and ability to perform activities of daily living [facility] Medical History (Updated 06/20/23 @ 11:14 by Jeana Aguilar, FIELD SALES TRAINER, COMPENSATION VICE PRESIDENT) Mild major depression, single episode Moderate persistent asthma Rheumatoid arthritis Left sided sciatica Left knee pain (~04/13/21) Mild asthma Hypovitaminosis D Pure hypercholesterolemia Essential hypertension Surgical History H/O colonoscopy S/P ORIF (open reduction internal fixation) fracture S/P PATTI-BSO (total abdominal hysterectomy and bilateral salpingo-oophorectomy) History of carpal tunnel release History of tubal ligation Family History Father Colon cancer Mother COPD (chronic obstructive pulmonary disease) Maternal Aunt Breast cancer Social History Household Members: Unknown / Unable to assess Housing: House (currently staying with son due to fall) Alcohol intake: never Comment: medicated in pacu Patient Tobacco Use Status: Never used Tobacco e-Cigarette/Vaping Use: Never Used Second Hand Smoke Exposure: No service: No Current occupational status: disabled Current occupation: rt handed Cognitive needs: No Hearing needs: No Vision needs: No Review of Systems Const All systems reviewed & are unremarkable except as noted in HPI and below Physical Exam Vital Signs: Last Vital Signs Pulse 92 06/20/23 10:45 BP 148/92 H 06/20/23 10:45 Pulse Ox 99 06/20/23 10:45 Oxygen Delivery Method Room Air 06/20/23 10:45 BMI result Body Mass Index 33.0 General: awake, alert, oriented. Answers questions appropriately. Fully engaged in examination. Skin: warm, dry, intact HEENT: Normocephalic. Hearing intact. Cardiac: External chest normal in appearance. Respiratory: No cough, audible wheezing or stridor. Abdomen: without gross distension. MS: No obvious swelling or deformities. Able to stand on bilateral tiptoes and bilateral heels.? Able to transition from sit to stand unassisted. Ambulates with bilaterally normal heel strike and toe off Lumbar range of motion intact Tenderness over left PSIS Nontender over midline lumbar vertebrae or lumbar paraspinal muscles Negative SLR bilaterally J CARLOS positive on the left [place] positive on the left Thigh thrust positive on the left SI compression positive on the left Full range of motion left hip, no pain with internal external rotation Neurological: Oriented to person, place, time and situation. Thought process intact. Psychiatric: Appropriate mood and affect. Good judgment and insight. Assessment & Plan Assessment & Plan (1) Sacroiliac joint dysfunction of left side: Code(s): M53.3 - Sacrococcygeal disorders, not elsewhere classified Plan Yoly is a very pleasant 62-year-old female who presented to the office today for evaluation management of her left lower back and left leg pain History, physical exam and provocative testing consistent with left sacroiliac joint dysfunction X-ray sacroiliac joint ordered for further eval Order placed for PT eval and treat Discontinue cyclobenzaprine, new order placed for methocarbamol 500 mg p.o. t.i.d. as needed, patient advised on cautions for use Naproxen 250 mg p.o. b.i.d.. Patient advised on cautions recent including do not take with any other nonsteroidal anti-inflammatory medications Continue with Tylenol as needed Discussed at length with patient her diagnosis and options for treatment including diagnostic interventional testing, steroid injections, peripheral nerve stimulation, fusion and more permanent neuromodulation. All questions and concerns have been answered and patient agrees with the plan. Follow up after PT, sooner if needed. Orders: Orders XR sacroiliac joint min 3V Today M53.3 - Sacrococcygeal disorders, not elsewhere classified PT Evaluation and Treatment Today M53.3 - Sacrococcygeal disorders, not elsewhere classified Medications: New methocarbamol Discontinue use of Cyclobenzaprine No driving while taking this medication. Do no take with alcohol or other RECHECKER Depressants 500 mg PO TID PRN 90 tabs 1RF muscle spasm naproxen 250 mg PO BID 60 tabs 0RF Coding Level of Care Code New Pt Level 4 (21654) Diagnoses Sacroiliac joint dysfunction of left side M53.3
[2023-06-20 10:45] VITALS: BP 148/92; PULSE 92; O2SAT 99; BMI 33.0
== END 2023-06-20 11:51 | disposition home or self-care (01) ==
PROVIDERS: PCP Internal Medicine; Referring Provider Internal Medicine; Visit Provider Registered Nurse Emergency
DX: M53.3 Sacrococcygeal disorders, not elsewhere classified (principal)
CPT/HCPCS: 99204

== ENCOUNTER 2024-01-10 10:16 | Outpatient (REF) | payer OTHER, SELFPAY ==
--- NOTE | ~2024-01-10 | MM_ITS ---
EXAMINATION: MM SCREENING DIGITAL BREAST TOMOSYNTHESIS, BILATERAL CLINICAL INFORMATION: Screening. Asymptomatic. COMPARISON: Mammography: Comparison is made with available priors TECHNIQUE: Digital breast mammography with tomosynthesis is performed in both the craniocaudal and mediolateral oblique views along with computer-aided detection (CAD). FINDINGS: There are scattered areas of fibroglandular density (ACR BI-RADS breast composition Category b). There are no significant masses, abnormal calcifications, or other abnormalities. MM/MM tomosynthesis screening BI IMPRESSION: No mammographic evidence of malignancy. ASSESSMENT: BI-RADS BI-RADS 1 - Negative RECOMMENDATION: Routine annual mammography screening. 1 year F/U This examination should not preclude the clinical evaluation of a suspicious palpable abnormality. This patient's information was entered into a reminder system with a target due date for their next mammogram. Electronically signed by: Alfreda Boone DO 01/22/2024 08:15 AM EDT
== END 2024-01-10 10:17 | disposition home or self-care (01) ==
LOC: HO.MAMMO 10:16
PROVIDERS: PCP Internal Medicine; Visit Provider Internal Medicine
DX: Z12.31 Encounter for screening mammogram for malignant neoplasm of breast (principal)
CPT/HCPCS: 77063; 77067

== ENCOUNTER → 2024-01-10 10:45 | Outpatient (BNV) | payer OTHER, SELFPAY | PROVIDERS: PCP Internal Medicine; Visit Provider Internal Medicine | DX: Z12.31 Encounter for screening mammogram for malignant neoplasm of breast (principal) | CPT/HCPCS: 77063; 77067 ==

== ENCOUNTER 2024-02-13 08:13 | Outpatient (AMB) | payer OTHER, SELFPAY ==
--- NOTE | 2024-02-13 08:16 | MHC.PC.OV ---
Vital Signs 02/13/24 08:18 Height 5 ft Weight 167 lb BMI 32.6 BP 120/72 Blood Pressure Location Lt brachial Position Sitting Intake Visit Reasons: Annual Exam Intake Note: Patient here for a physical exam Step Down Nurse Required: No Accompanied by: Self / Same As Patient Allergies soy [Soy] Allergy (Intermediate, Verified 02/13/24 08:43) LIP SWELLING ( SOY SAUCE ) terbinafine Allergy (Intermediate, Verified 02/13/24 08:43) Rash duloxetine Adverse Reaction (Intermediate, Verified 02/13/24 08:43) hallucinations Medication List - Last Reconciled 02/13/24 by Jania Barrow MD albuterol sulfate 90 mcg/actuation (Ventolin HFA) 2 puffs PO Q4H PRN 30 days amlodipine 5 mg PO DAILY 90 days cholecalciferol (vitamin D3) 50 mcg PO DAILY cyclobenzaprine 10 mg PO TID PRN lisinopril 40 mg PO DAILY 90 days methocarbamol 500 mg PO TID PRN naproxen 250 mg PO BID sennosides (senna) 8.6 mg PO BEDTIME PRN 30 days Tobacco use date assessed: 06/18/23 Dental Screening Dental Screen Date: 06/18/23 HPI HPI Comments History of Present Illness Details This is a 63-year-old female that comes for her physical exam. Mammogram done 2023. No need for Pap smear due to hysterectomy for benign reasons. Colonoscopy done 2022 showing tubular adenoma and next colonoscopy should be 2025. No chest pain or shortness on breath. Compliant with medications. [facility] Medical History (Updated 02/13/24 @ 08:50 by Jania Barrow MD) Mild major depression, single episode Moderate persistent asthma Rheumatoid arthritis Left sided sciatica Left knee pain (~04/13/21) Mild asthma Hypovitaminosis D Pure hypercholesterolemia Essential hypertension Surgical History H/O colonoscopy S/P ORIF (open reduction internal fixation) fracture S/P PATTI-BSO (total abdominal hysterectomy and bilateral salpingo-oophorectomy) History of carpal tunnel release History of tubal ligation Family History Father Colon cancer Mother COPD (chronic obstructive pulmonary disease) Maternal Aunt Breast cancer Social History Household Members: Unknown / Unable to assess Housing: House (currently staying with son due to fall) Alcohol intake: never Comment: medicated in pacu Patient Tobacco Use Status: Never used Tobacco e-Cigarette/Vaping Use: Never Used Second Hand Smoke Exposure: No service: No Current occupational status: disabled Current occupation: rt handed Cognitive needs: No Hearing needs: No Vision needs: No Questionnaire Thrive Questionnaire Date Thrive assessed: 06/18/23 I am a: Patient What is your living situation today?: I have a steady place to live Within the past 12 months, did the food you bought not last and you didn't have the money to get more?: I choose not to answer this question Within the past 12 months, did you worry whether your food would run out before you got money to buy more?: I choose not to answer this question Do you have trouble paying for medicines?: I choose not to answer this question Do you have trouble getting transportation to medical appointments?: I choose not to answer this question Do you have trouble paying your heating and electricity bill?: I choose not to answer this question Do you have trouble taking care of your child, family member or friend?: I choose not to answer this question Do you have trouble with day-to-day activities such as bathing, preparing meals, shopping, managing finances, etc.?: I choose not to answer this question Are you currently unemployed and looking for a job?: I choose not to answer this question Are you interested in more education?: I choose not to answer this question Please select the resources that you would like help with: None Currently or been in a relationship where the following occur: I choose not to answer THRIVE Score: 0 AUDIT C Alcohol Use Questionnaire (AUDIT-C) 1. How often do you have a drink containing alcohol?: Never Total Score: 0 Score Reviewed/Action Taken: No DAYANA-7 AMB Questionnaire DAYANA-7 Date DAYANA - 7 assessed: 06/18/23 Feeling nervous, anxious, or on edge: 0 = Not at all Not being able to stop or control worryin = Not at all Worrying too much about different things: 0 = Not at all Trouble relaxin = Not at all Being so restless that it is hard to sit still: 0 = Not at all Becoming easily annoyed or irritable: 0 = Not at all Feeling afraid as if something awful might happen: 0 = Not at all Total DAYANA-7 score (0-4 normal; 5-9 mild; 10-14 moderate; 15-21 severe): 0 Source: Developed by Drs. Juan Pablo Orellana, Shannon Garcia, Jonathan Westfall and colleagues, with an educational steve from [employer]. DAYANA-7 Assessment Billing DAYANA-7 Assessment Tool: DAYANA-7 Assessment 30093 Review of Systems Const All systems reviewed & are unremarkable except as noted in HPI and below Card Denies chest pain at rest, Denies chest pain with activity, Denies edema, Denies irregular heart rhythm, Denies claudication, Denies dyspnea, Denies dyspnea on exertion, Denies orthopnea, Denies paroxysmal nocturnal dyspnea and Denies slow heart rate Resp Denies cough, Denies dyspnea and Denies dyspnea on exertion GI Denies abdominal pain, Denies change in bowel habits, Denies excessive flatus, Denies nausea and Denies vomiting Denies urinary incontinence, Denies urinary hesitancy and Denies urinary urgency Musc Denies atrophy, Denies deformity and Denies limited range of motion Physical exam (Primary Care) Vital Signs: Last Vital Signs BP 120/72 02/13/24 08:18 BMI result Body Mass Index 32.6 BMI Assessment/Plan discussion: High BMI High, discussed plan: lifestyle, weight reduction, dietary and physical activity Tobacco/Smoking Status: Tobacco use Status Tobacco use date assessed 06/18/23 02/13/24 08:23 Patient Tobacco Use Status Never used Tobacco 02/13/24 08:23 e-Cigarette/Vaping Use Never Used 02/13/24 08:23 Thrive Assessment: Date of Thrive Assessment Date Thrive assessed 06/18/23 02/13/24 08:23 Currently or been in a relationship where the following occur: I choose not to answer HENMT Head: Yes normal to inspection, Yes normocephalic and Yes atraumatic Ears: external ears normal Eyes General: appearance normal, both eyes and all related structures Eyelids: Yes eyelids normal Conjunctivae: conjunctivae normal Neck Neck: Yes normal visual inspection and Yes supple Resp Effort & Inspection: normal respiratory effort Auscultation: clear to auscultation bilaterally Cardio Jugular venous distension: no JVD Rate: regular rate Rhythm: regular rhythm Heart sounds: S1 normal heart sound present and S2 normal heart sound present GI Inspection: Yes normal to inspection Palpation (GI): Soft to palpation and nontender Auscultation: normal bowel sounds Skin General skin exam: no rashes or lesions noted Neuro General: no focal motor deficits Extrem General: Yes full ROM Psych Appearance: grossly normal Office Procedures Flu Questionnaire Does the patient have a severe egg allergy?: No Immunizations Fluarix Triv [id number] (PF) 45 mcg (15 mcg x 3)/0.5 mL IM syringe Performing Provider: Jania Barrow MD [place] [facility] [facility] Documented (not given) by: RICHIE Varela on 02/13/24 08:23 Reason Not Given: Received Previously Coding Level of Care Code Est Pt Prev Care 40-64y(16190) Diagnoses Physical exam Z00.00 Additional Codes DAYANA-7 Assessment Billing - DAYANA-7 Assessment Tool: DAYANA-7 Assessment 62674 ([id number]) Time Spent (min) 30 Assessment & Plan Assessment & Plan (1) Physical exam: Code(s): Z00.00 - Encounter for general adult medical examination without abnormal findings Category: Medical Plan: Repeat in a year. Orders: Orders XR DEXA axial skeleton Today Z78.0 - Asymptomatic menopausal state Influenza 4842-2054 Immunization Today Z23 - Encounter for immunization Comprehensive [place]. Panel Fast Today Z00.00 - Encounter for general adult medical examination without abnormal findings Lipid Panel Today Z00.00 - Encounter for general adult medical examination without abnormal findings Medications: Refilled sennosides (senna) 8.6 mg PO BEDTIME PRN 30 tabs 1RF constipation 30 days
[2024-02-13 08:18] VITALS: BP 120/72; BMI 32.6
== END 2024-02-13 08:52 | disposition home or self-care (01) ==
PROVIDERS: PCP Internal Medicine; Visit Provider Internal Medicine
DX: Z23 Encounter for immunization (principal); Z00.00 Encounter for general adult medical examination without abnormal findings

== ENCOUNTER → 2024-02-13 08:13 | Outpatient (BNVA) | payer OTHER, SELFPAY | PROVIDERS: PCP Internal Medicine; Visit Provider Internal Medicine | DX: Z00.00 Encounter for general adult medical examination without abnormal findings (principal); I10 Essential (primary) hypertension | CPT/HCPCS: 90471; 96127; 99396 ==

== ENCOUNTER 2024-02-21 06:00 | Outpatient (REF) | payer OTHER, SELFPAY ==
[2024-02-21 08:08] LABS: Alanine Aminotransferase 34 U/L (0-31); Albumin Level 4.2 g/dL (3.5-5.0); Alkaline Phosphatase 77 U/L (39-117); Anion Gap 12 (12-20); Aspartate Amino Transferase 31 U/L (5-31); Bilirubin Total 0.7 mg/dL (0.0-1.0); Blood Urea Nitrogen 13 mg/dL (9-16); Calcium 9.9 mg/dL (8.4-10.2); Carbon Dioxide 28 mmol/L (22-29); Chloride 106 mmol/L (96-108); Cholesterol 225 mg/dL (<200); Estimated Glomerular Filt Rate > 60; Glucose Fasting 93 mg/dL (60-99); HDL Cholesterol 71 mg/dL (>40); LDL Cholesterol Calculated 130 mg/dL (<100); Potassium 4.3 mmol/L (3.3-5.1); Sodium 142 mmol/L (135-145); Total Protein 7.6 g/dL (6.5-8.0); Triglycerides 123 mg/dL (<150)
== END 2024-02-21 06:01 | disposition home or self-care (01) ==
LOC: HO.LAB 06:00
PROVIDERS: PCP Internal Medicine; Visit Provider Internal Medicine
DX: Z00.00 Encounter for general adult medical examination without abnormal findings (principal)
CPT/HCPCS: 36415; 80053; 80061

== ENCOUNTER 2024-03-20 08:41 | Outpatient (REF) | payer OTHER, SELFPAY ==
--- NOTE | ~2024-03-20 | MM_ITS ---
EXAMINATION: BONE DENSITOMETRY CLINICAL INDICATION: Menopause. COMPARISON: This is the patient's baseline examination. TECHNIQUE: Using a [employer] DXA System (software version: 13.1) manufactured by [employer], dual-energy x-ray absorptiometry was performed of the lumbar spine and left hip. The images are of good technical quality. Summary results are attached. FINDINGS: LEFT FEMUR, NECK: BMD 0.735 g/cm2, Z-score -1.0, T-score -2.2, osteopenia. LEFT FEMUR, TOTAL: BMD 0.859 g/cm2, Z-score -0.3, T-score -1.2, osteopenia. AP SPINE L1-L4: BMD 1.108 g/cm2, Z-score 0.5, T-score -0.6, normal. IDENTIFIED RISK FACTORS: Menopause, hysterectomy, history of fracture (adult), bilateral oophorectomy. HISTORY OF FRACTURE: Other. MEDICATIONS: Vitamin D. MM/XR DEXA axial skeleton IMPRESSION: 1. DIAGNOSIS: Osteopenia based on the lowest T-score value of -2.2 in the femoral neck applying World Health Organization criteria. 2. 10-YEAR FRACTURE RISK PREDICTION, FRAX: Major osteoporotic fracture (clinical spine, forearm, hip or shoulder) 10.0%. Hip fracture 1.5%. 3. Treatment Recommendations: NOF guidelines recommend consideration for treatment in postmenopausal women and men age 50 and older presenting with the following: -A hip or vertebral (clinical or morphometric) fracture. -T-score less than or equal to -2.5 at the femoral neck or spine after appropriate evaluation to exclude secondary causes. -Low bone mass at the hip or spine and a 10-year fracture probability by FRAX of greater than or equal to 3% for hip fracture or greater than or equal to 20% for major osteoporotic fracture based on the [place] adapted WHO algorithm. 4. Other Recommendations: All treatment decisions require clinical judgment and consideration of individual patient factors, including patient preferences, comorbidities, previous drug use, risk factors not captured in the FRAX model (e.g. frailty, falls, vitamin D deficiency, increased bone turnover, interval significant decline in bone density) and possible under or overestimation of fracture risk by FRAX. Additional medical evaluation for secondary cause of low bone mineral density may be appropriate. FUTURE SCAN RECOMMENDATION: People with diagnosed cases of osteoporosis or at high risk for fracture should have regular bone mineral density tests. For patients eligible for Medicare, routine testing is allowed once every 2 years. The testing frequency can be increased to one year for patients who have rapidly progressing disease, those who are receiving or discontinuing medical therapy to restore bone mass, or have additional risk factors. Electronically signed by: Kacie Nowak MD 03/20/2024 10:06 AM [facility]
== END 2024-03-20 08:42 | disposition home or self-care (01) ==
LOC: HO.MAMMO 08:41
PROVIDERS: PCP Internal Medicine; Visit Provider Internal Medicine
DX: Z13.820 Encounter for screening for osteoporosis (principal); Z78.0 Asymptomatic menopausal state
CPT/HCPCS: 77080

== ENCOUNTER 2024-06-24 08:11 | Outpatient (AMB) | payer OTHER, SELFPAY ==
--- NOTE | 2024-06-24 08:19 | A.OFFPC_ITS ---
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 Accompanied by: Self / Same As Patient Allergies soy [Soy] Allergy (Intermediate, Verified 06/24/24 08:54) LIP SWELLING ( SOY SAUCE ) terbinafine Allergy (Intermediate, Verified 06/24/24 08:54) Rash duloxetine Adverse Reaction (Intermediate, Verified 06/24/24 08:54) hallucinations Medication List - Last Reconciled 06/24/24 by Jania Barrow MD albuterol sulfate 90 mcg/actuation (Ventolin HFA) 2 puffs PO Q4H PRN 30 days amlodipine 5 mg PO DAILY 90 days calcium carbonate 600 mg PO BID 90 days cholecalciferol (vitamin D3) 50 mcg PO DAILY cyclobenzaprine 10 mg PO TID PRN docusate calcium (Stool Softener (docusate calcium)) 240 mg PO BEDTIME PRN 90 days lisinopril 40 mg PO DAILY 90 days methocarbamol 500 mg PO TID PRN naproxen 250 mg PO BID rosuvastatin 10 mg PO DAILY 90 days sennosides (senna) mg PO Tobacco use date assessed: 06/24/24 Dental Screening Dental Screen Date: 06/24/24 Did you have a dental visit in the last 12 months?: Yes Did you have a dental problem in the last 6 months where you did not have access to dental care?: No Was dental information given to patient?: Patient has dentist HPI HPI Comments History of Present Illness Details The patient is a 63-year-old female presenting with Essential Hypertension and Constipation. Her blood pressure is reportedly well-controlled with amlodipine 5 mg. The patient, however, reports concerns regarding con stipation, describing a lack of efficacy in her current management plan, which includes Senac, and expresses interest in switching to MiraLAX. She denies associating symptoms such as chest pain or shortness of breath with her problems. 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 Osteopenia was diagnosed in 2023 through densitometry, and she is on calcium and vitamin D supplementation. The patient also has hyperlipidemia, currently managed with rosuvastatin 10 mg, and scheduled for reassessment in January. She is in obesity class I, and lifestyle modifications, particularly dietary adjustments, have been advised. Additionally, she reports experiencing tinnitus worsened by exposure to loud sounds. [facility] Medical History (Updated 06/24/24 @ 13:07 by Jania Barrow MD) Mild major depression, single episode Moderate persistent asthma Rheumatoid arthritis Left sided sciatica Left knee pain (~04/13/21) Mild asthma Hypovitaminosis D Pure hypercholesterolemia Essential hypertension Surgical History H/O colonoscopy S/P ORIF (open reduction internal fixation) fracture S/P PATTI-BSO (total abdominal hysterectomy and bilateral salpingo-oophorectomy) History of carpal tunnel release History of tubal ligation Family History Father Colon cancer Mother COPD (chronic obstructive pulmonary disease) Maternal Aunt Breast cancer Social History Household Members: Unknown / Unable to assess Housing: House (currently staying with son due to fall) Alcohol intake: never Comment: medicated in pacu Patient Tobacco Use Status: Never used Tobacco e-Cigarette/Vaping Use: Never Used Second Hand Smoke Exposure: No service: No Current occupational status: disabled Current occupation: rt handed Cognitive needs: No Hearing needs: No Vision needs: No Questionnaire PHQ-9 Over the last 2 weeks, how often have you been bothered by any of the following problems? 1. Little interest or pleasure in doing things: not at all 2. Feeling down, depressed, or hopeless: not at all 3. Trouble falling or staying asleep, or sleeping too much: not at all 4. Feeling tired or having little energy: not at all 5. Poor appetite or overeating: not at all 6. Feeling bad about yourself - or that you are a failure or have let yourself or your family down: not at all 7. Trouble concentrating on things, such as reading the newspaper or watching television: not at all 8. Moving or speaking so slowly that other people could have noticed. Or the opposite - being so fidgety or restless that you have been moving around a lot more than usual: not at all 9. Thoughts that you would be better off or of hurting yourself in some way: not at all Total score: 0 Depression Screening Interpretation: Negative Depression Screening Done: Yes 39156 - PHQ-9 Billing: Yes Source: Developed by Drs. Juan Pablo Orellana, Shannon Garcia, Jonathan Westfall and colleagues, with an educational steve from [employer]. Thrive Questionnaire Date Thrive assessed: 06/24/24 I am a: Patient What is your living situation today?: I have a steady place to live Within the past 12 months, did the food you bought not last and you didn't have the money to get more?: Never true Within the past 12 months, did you worry whether your food would run out before you got money to buy more?: Never true Do you have trouble paying for medicines?: No Do you have trouble getting transportation to medical appointments?: No Do you have trouble paying your heating and electricity bill?: No Do you have trouble taking care of your child, family member or friend?: No Do you have trouble with day-to-day activities such as bathing, preparing meals, shopping, managing finances, etc.?: No Are you currently unemployed and looking for a job?: No Are you interested in more education?: No Please select the resources that you would like help with: None Currently or been in a relationship where the following occur: No concerns reported THRIVE Score: 0 AUDIT C Alcohol Use Questionnaire (AUDIT-C) 1. How often do you have a drink containing alcohol?: Never Total Score: 0 Score Reviewed/Action Taken: No DAYANA-7 AMB Questionnaire DAYANA-7 Date DAYANA - 7 assessed: 06/24/24 Feeling nervous, anxious, or on edge: 0 = Not at all Not being able to stop or control worryin = Not at all Worrying too much about different things: 0 = Not at all Trouble relaxin = Not at all Being so restless that it is hard to sit still: 0 = Not at all Becoming easily annoyed or irritable: 0 = Not at all Feeling afraid as if something awful might happen: 0 = Not at all Total DAYANA-7 score (0-4 normal; 5-9 mild; 10-14 moderate; 15-21 severe): 0 Source: Developed by Drs. Juan Pablo Orellana, Shannon Garcia, Jonathan Westfall and colleagues, with an educational steve from [employer]. DAYANA-7 Assessment Billing DAYANA-7 Assessment Tool: DAYANA-7 Assessment 64343 Review of Systems Const All systems reviewed & are unremarkable except as noted in HPI and below Card Denies chest pain at rest, Denies chest pain with activity, Denies edema, Denies irregular heart rhythm, Denies claudication, Denies dyspnea, Denies dyspnea on exertion, Denies orthopnea, Denies paroxysmal nocturnal dyspnea and Denies slow heart rate Resp Denies cough, Denies dyspnea and Denies dyspnea on exertion Physical exam (Primary Care) Vital Signs: Last Vital Signs BP 132/80 06/24/24 08:21 BMI result Body Mass Index 33.4 BMI Assessment/Plan discussion: High BMI High, discussed plan: lifestyle, weight reduction, dietary and physical activity Tobacco/Smoking Status: Tobacco use Status Tobacco use date assessed 06/24/24 06/24/24 08:26 Patient Tobacco Use Status Never used Tobacco 06/24/24 08:26 e-Cigarette/Vaping Use Never Used 06/24/24 08:26 PHQ-9: PHQ-9 Score PHQ-9: Total score 0 06/24/24 08:55 Depression Screening Interpretation: Negative Thrive Assessment: Date of Thrive Assessment Date Thrive assessed 06/24/24 06/24/24 08:26 Currently or been in a relationship where the following occur: No concerns reported Resp Effort & Inspection: normal respiratory effort Auscultation: clear to auscultation bilaterally Cardio Jugular venous distension: no JVD Rate: regular rate Rhythm: regular rhythm Heart sounds: S1 normal heart sound present and S2 normal heart sound present Extrem General: Yes full ROM Coding Level of Care Code Est Pt Level 4 (94234) Complex EM visit Add On G2211 Diagnoses Essential hypertension I10 Pure hypercholesterolemia E78.00 Chronic idiopathic constipation K59.04 Osteopenia M85.80 Additional Codes DAYANA-7 Assessment Billing - DAYANA-7 Assessment Tool: DAYANA-7 Assessment 71949 ([id number]) PHQ-9 - 10920 - PHQ-9 Billing: Yes ([id number]) Time Spent (min) 24 Assessment & Plan Assessment & Plan (1) Essential hypertension: Code(s): I10 - Essential (primary) hypertension Category: Medical (2) Pure hypercholesterolemia: Code(s): E78.00 - Pure hypercholesterolemia, unspecified Category: Medical (3) Chronic idiopathic constipation: Code(s): K59.04 - Chronic idiopathic constipation Category: Medical (4) Osteopenia: Code(s): M85.80 - Other specified disorders of bone density and structure, unspecified site Category: Medical Plan The management plan includes continuing amlodipine for blood pressure control, transitioning to MiraLAX for constipation, and maintaining rosuvastatin for lipid management. In January, her lipid profile will be evaluated to determine the effectiveness of current therapy. Emphasis was placed on dietary changes to address obesity class I and hyperlipidemia, with the understanding that weight loss will benefit overall health. Tinnitus was counseled with preventive measures to avoid exacerbating symptoms. Ensuring safety and prevention regar ding her known drug allergies was highlighted. Patient was informed and verbally consented to the use of an ambient scribe for clinic note documentation during this visit. We reviewed her current medications and addressed the desire to switch from Senac to MiraLAX to manage constipation more effectively. I stressed the importance of weight management and dietary adjustments in view of her obesity class I status and hyperlipidemia, noting the positive impact on her overall health, including cardiovascular benefits. We reviewed her lipid management plan with rosuvastatin, setting a reevaluation marker for January. I advised on avoiding soy due to known allergies and reiterated importance of vigilance with new medications. Additionally, tinnitus management strategies, including protecting hear conductivity with ear protection, were discussed. Safety precautions regarding medication allergies were reviewed in detail. Orders: Orders Vitamin D 25-OH Total 8 Months E55.9 - Vitamin D deficiency, unspecified Comprehensive [place]. Panel Fast 8 Months J45.40 - Moderate persistent asthma, uncomplicated Lipid Panel 8 Months E78.5 - Hyperlipidemia, unspecified Medications: New polyethylene glycol 3350 (Miralax) 17 grams PO DAILY PRN 510 grams 0RF constipation 30 days Refilled cyclobenzaprine 10 mg PO TID PRN 20 tabs 0RF muscle spasm Discontinued methocarbamol Discontinue use of Cyclobenzaprine No driving while taking this medication. 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 - Switch to MiraLAX as discussed for constipation relief. - Monitor dietary intake and focus on weight management strategies as advised. - Return for a lipid profile reevaluation in January. - Avoid loud noises to manage symptoms of tinnitus effectively. - Maintain vigilance regarding medication allergies and report any new reactions. - Follow recommended protective measures for tinnitus management.
[2024-06-24 08:21] VITALS: BP 132/80; BMI 33.4
== END 2024-06-24 09:06 | disposition home or self-care (01) ==
LOC: HO.HMCH 08:12
PROVIDERS: PCP Internal Medicine; Visit Provider Internal Medicine
DX: I10 Essential (primary) hypertension (principal); E78.00 Pure hypercholesterolemia, unspecified; K59.04 Chronic idiopathic constipation; M85.80 Other specified disorders of bone density and structure, unspecified site

== ENCOUNTER → 2024-06-24 08:11 | Outpatient (BNVA) | payer OTHER, SELFPAY | PROVIDERS: PCP Internal Medicine; Visit Provider Internal Medicine | DX: I10 Essential (primary) hypertension (principal); E78.00 Pure hypercholesterolemia, unspecified; K59.04 Chronic idiopathic constipation; M85.80 Other specified disorders of bone density and structure, unspecified site | CPT/HCPCS: 96127; 99212 ==

== ENCOUNTER 2024-08-25 09:01 | Outpatient (RCR) | payer OTHER, SELFPAY ==
--- NOTE | 2024-07-31 12:45 | MHC.PT.EP ---
[facility] [place] Office [place] Office [place] Office [address] Joyce Victor [address] [phone] F: [phone] F: [phone] F: [phone] F: [phone] Physical Therapy Plan of Care Date of Evaluation: 07/31/24 Date of Surgery: 4 yrs ago Diagnosis: LEFT leg pain (MD Dx) Hx of L distal tibia ORIF 4 yrs ago Assessment: Yoly is a pleasant 63 y.o. [place] Citizen speaking female who is referred to PT by Dr. Jania aBrrow MD, with Dx of LEFT leg pain. Pt with history of proximal fibula fracture and distal tibia fracture, with additional fracture posterior malleolus in 09/2020 where she then had ORIF in distal LEFT tibia. Patient impairments include pain, swelling, limited ankle ROM, weakness L ankle, knee and hip, antalgic gait. Patient current functional limitations are using stairs (4th floor, turns sideways), cleaning/mopping, putting on shoes and socks, walking, prolonged sitting. Patient will benefit from skilled PT to address aforementioned impairments and functional limitations to meet established goals. Frequency and Duration: The patient will be seen 2x/week for 4 weeks Short Term Goals: 2 weeks Patient demonstrates consistency and independence with HEP to self manage symptoms. Senior Living Goals: 4 weeks Patient presents with increased L ankle DF 0 degrees to improve gait without AD for level surfaces. Patient presents with increased L ankle inversion/eversion strength 4+/5 to ascend/descend stairs one at a time at home. Treatment Plan: Modalities to reduce pain, spasms and effusion. Manual therapy to restore motion and function. Therapeutic exercise to improve strength and flexibility. Neuromuscular re-education for posture and balance. Therapeutic activities to return to functional activities of daily living. Electronically signed by: Cj Jimenez, PT, DPT Please sign and return to therapist. Thank you for your referral.
--- NOTE | 2024-10-23 16:01 | MHC.PT.DC ---
[facility] [place] Office [place] Office [place] Office [address] [phone] F: [phone] F: [phone] F: [phone] F: [phone] Physical Therapy Discharge Report Diagnosis: LEFT leg pain ( Dx) Hx of L distal tibia ORIF 4 yrs ago Date of Surgery: 4 yrs ago Date of Evaluation: 07/31/24 Date of Discharge: 10/23/24 Treatments to Date: 7 Cancellations to Date: 2 No Shows to Date: 0 Discharge Status: Achieved Goals Improved Function Independent with HEP Discharge Summary: Yoly presents with improvement in L ankle AROM, L ankle strength and is now demonstrating normalized gait pattern. She is ready for discharge from PT today, to continue with HEP. Electronically signed by: Cj Jimenez, PT, DPT Please sign and return to therapist. Thank you for your referral.
== END 2024-10-23 16:01 | disposition home or self-care (01) ==
LOC: HO.PT 09:01
PROVIDERS: PCP Internal Medicine; Visit Provider Internal Medicine
DX: M79.605 Pain in left leg (principal)
CPT/HCPCS: 97110; 97112; 97140; 97162; 97530

== ENCOUNTER 2024-10-28 13:50 | Outpatient (AMB) | payer OTHER, SELFPAY ==
--- NOTE | 2024-10-28 14:20 | MHC.PC.OV ---
Vital Signs 10/28/24 14:21 Height 5 ft Weight 173 lb BMI 33.8 BP 120/70 Blood Pressure Location Lt brachial Position Sitting Intake Visit Reasons: bp Intake Note: Patient here for a follow up BP Thumb Sewer Required: No Accompanied by: Self / Same As Patient Allergies soy (Soy) Allergy (Intermediate, Verified 10/28/24 14:32) LIP SWELLING ( SOY SAUCE ) terbinafine Allergy (Intermediate, Verified 10/28/24 14:32) Rash duloxetine Adverse Reaction (Intermediate, Verified 10/28/24 14:32) hallucinations Medication List - Last Reconciled 10/28/24 by Jania Barrow MD albuterol sulfate 90 mcg/actuation (Ventolin HFA) 2 puffs PO Q4H PRN 30 days amlodipine 5 mg PO DAILY 90 days calcium carbonate 600 mg PO BID 90 days cholecalciferol (vitamin D3) 50 mcg PO DAILY cyclobenzaprine 10 mg PO TID PRN lisinopril 40 mg PO DAILY 90 days naproxen 250 mg PO BID [pillow As directed] polyethylene glycol 3350 (Miralax) 17 grams PO DAILY PRN 30 days rosuvastatin 10 mg PO DAILY 90 days Tobacco use date assessed: 06/24/24 Dental Screening Dental Screen Date: 06/24/24 HPI HPI Comments History of Present Illness Details The patient is a 64-year-old female presenting for follow-up of hypertension and hyperlipidemia management. Her blood pressure is well-controlled with Lisinopril 40 mg, and she is due for cholesterol testing before her physical in January. She experiences sciatica with intermittent left-sided back pain, managed with Naproxen as needed. Occasional constipation is managed with MiraLAX and a high-fiber diet. She had a colonoscopy in 2022 and is aware of the need for regular screenings. She denies smoking, alcohol use, and depression. [facility] Medical History Mild major depression, single episode Moderate persistent asthma Rheumatoid arthritis Left sided sciatica Left knee pain (~04/13/21) Mild asthma Hypovitaminosis D Pure hypercholesterolemia Essential hypertension Surgical History H/O colonoscopy S/P ORIF (open reduction internal fixation) fracture S/P PATTI-BSO (total abdominal hysterectomy and bilateral salpingo-oophorectomy) History of carpal tunnel release History of tubal ligation Family History Father Colon cancer Mother COPD (chronic obstructive pulmonary disease) Maternal Aunt Breast cancer Social History Household Members: Unknown / Unable to assess Housing: House (currently staying with son due to fall) Alcohol intake: never Comment: medicated in pacu Patient Tobacco Use Status: Never used Tobacco e-Cigarette/Vaping Use: Never Used Second Hand Smoke Exposure: No service: No Current occupational status: disabled Current occupation: rt handed Cognitive needs: No Hearing needs: No Vision needs: No Questionnaire PHQ-9 Over the last 2 weeks, how often have you been bothered by any of the following problems? 1. Little interest or pleasure in doing things: not at all 2. Feeling down, depressed, or hopeless: not at all 3. Trouble falling or staying asleep, or sleeping too much: not at all 4. Feeling tired or having little energy: not at all 5. Poor appetite or overeating: not at all 6. Feeling bad about yourself - or that you are a failure or have let yourself or your family down: not at all 7. Trouble concentrating on things, such as reading the newspaper or watching television: not at all 8. Moving or speaking so slowly that other people could have noticed. Or the opposite - being so fidgety or restless that you have been moving around a lot more than usual: not at all 9. Thoughts that you would be better off or of hurting yourself in some way: not at all Total score: 0 Depression Screening Interpretation: Negative Depression Screening Done: Yes 87488 - PHQ-9 Billing: Yes Source: Developed by Drs. Juan Pablo Orellana, Shannon Garcia, Jonathan Westfall and colleagues, with an educational steve from [employer]. Thrive Questionnaire Date Thrive assessed: 06/24/24 I am a: Patient What is your living situation today?: I have a steady place to live Within the past 12 months, did the food you bought not last and you didn't have the money to get more?: Often true Within the past 12 months, did you worry whether your food would run out before you got money to buy more?: Often true Do you have trouble paying for medicines?: No Do you have trouble getting transportation to medical appointments?: No Do you have trouble paying your heating and electricity bill?: No Do you have trouble taking care of your child, family member or friend?: No Do you have trouble with day-to-day activities such as bathing, preparing meals, shopping, managing finances, etc.?: No Are you currently unemployed and looking for a job?: No Are you interested in more education?: No Please select the resources that you would like help with: None Currently or been in a relationship where the following occur: No concerns reported THRIVE Score: 2 AUDIT C Alcohol Use Questionnaire (AUDIT-C) 1. How often do you have a drink containing alcohol?: Never Total Score: 0 Score Reviewed/Action Taken: No DAYANA-7 AMB Questionnaire DAYANA-7 Date DAYANA - 7 assessed: 06/24/24 Feeling nervous, anxious, or on edge: 0 = Not at all Not being able to stop or control worryin = Not at all Worrying too much about different things: 0 = Not at all Trouble relaxin = Not at all Being so restless that it is hard to sit still: 0 = Not at all Becoming easily annoyed or irritable: 0 = Not at all Feeling afraid as if something awful might happen: 0 = Not at all Total DAYANA-7 score (0-4 normal; 5-9 mild; 10-14 moderate; 15-21 severe): 0 Source: Developed by Drs. Juan Pablo Orellana, Shannon Garcia, Jonathan Westfall and colleagues, with an educational steve from [employer]. DAYANA-7 Assessment Billing DAYANA-7 Assessment Tool: DAYANA-7 Assessment 27521 Review of Systems Const All systems reviewed & are unremarkable except as noted in HPI and below Card Denies chest pain at rest, Denies chest pain with activity, Denies edema, Denies irregular heart rhythm, Denies claudication, Denies dyspnea, Denies dyspnea on exertion, Denies orthopnea, Denies paroxysmal nocturnal dyspnea and Denies slow heart rate Resp Denies cough, Denies dyspnea and Denies dyspnea on exertion GI Denies abdominal pain, Denies change in bowel habits, Denies excessive flatus, Denies nausea and Denies vomiting Physical exam (Primary Care) Vital Signs: Last Vital Signs BP 120/70 10/28/24 14:21 BMI result Body Mass Index 33.8 BMI Assessment/Plan discussion: High BMI High, discussed plan: lifestyle, weight reduction, dietary and physical activity Tobacco/Smoking Status: Tobacco use Status Tobacco use date assessed 06/24/24 10/28/24 14:27 Patient Tobacco Use Status Never used Tobacco 10/28/24 14:27 e-Cigarette/Vaping Use Never Used 10/28/24 14:27 PHQ-9: PHQ-9 Score PHQ-9: Total score 0 10/28/24 14:27 Depression Screening Interpretation: Negative Thrive Assessment: Date of Thrive Assessment Date Thrive assessed 06/24/24 10/28/24 14:27 Currently or been in a relationship where the following occur: No concerns reported Resp Effort & Inspection: normal respiratory effort Auscultation: clear to auscultation bilaterally Cardio Jugular venous distension: no JVD Rhythm: regular rhythm Heart sounds: S1 normal heart sound present and S2 normal heart sound present Extrem General: Yes full ROM Coding Level of Care Code Est Pt Level 4 (47354) Complex EM visit Add On G2211 Diagnoses Essential hypertension I10 Pure hypercholesterolemia E78.00 Osteopenia M85.80 Hypovitaminosis D E55.9 Chronic idiopathic constipation K59.04 Left sided sciatica M54.32 Additional Codes PHQ-9 - 82889 - PHQ-9 Billing: Yes ([id number]) DAYANA-7 Assessment Billing - DAYANA-7 Assessment Tool: DAYANA-7 Assessment 06812 ([id number]) Time Spent (min) 22 Assessment & Plan Assessment & Plan (1) Essential hypertension: Code(s): I10 - Essential (primary) hypertension Category: Medical (2) Pure hypercholesterolemia: Code(s): E78.00 - Pure hypercholesterolemia, unspecified Category: Medical (3) Osteopenia: Code(s): M85.80 - Other specified disorders of bone density and structure, unspecified site Category: Medical (4) Hypovitaminosis D: Code(s): E55.9 - Vitamin D deficiency, unspecified Category: Medical (5) Chronic idiopathic constipation: Code(s): K59.04 - Chronic idiopathic constipation Category: Medical (6) Left sided sciatica: Code(s): M54.32 - Sciatica, left side Category: Medical Plan The patient will maintain her current hypertension treatment with Lisinopril 40 mg, as her blood pressure remains stable. She is due for cholesterol testing prior to her January physical. For sciatica, Naproxen will be used as needed for pain relief. Constipation management includes MiraLAX and a high-fiber diet. She understands the need for regular colonoscopy screenings, with the last one conducted in 2022. Patient was informed and verbally consented to the use of an ambient scribe for clinic note documentation during this visit. Orders: Orders Lipid Panel 4 Months E78.5 - Hyperlipidemia, unspecified Vitamin D 25-OH Total 4 Months E55.9 - Vitamin D deficiency, unspecified Comprehensive [facility]. Panel Fast 4 Months I10 - Essential (primary) hypertension
[2024-10-28 14:21] VITALS: BP 120/70; BMI 33.8
== END 2024-10-28 14:41 | disposition home or self-care (01) ==
LOC: HO.HMCH 13:51
PROVIDERS: PCP Internal Medicine; Visit Provider Internal Medicine
DX: I10 Essential (primary) hypertension (principal); E78.00 Pure hypercholesterolemia, unspecified; M85.80 Other specified disorders of bone density and structure, unspecified site; E55.9 Vitamin D deficiency, unspecified; K59.04 Chronic idiopathic constipation; M54.32 Sciatica, left side

== ENCOUNTER → 2024-10-28 13:50 | Outpatient (BNVA) | payer OTHER, SELFPAY | PROVIDERS: PCP Internal Medicine; Visit Provider Internal Medicine | DX: I10 Essential (primary) hypertension (principal); E78.00 Pure hypercholesterolemia, unspecified; E55.9 Vitamin D deficiency, unspecified; K59.04 Chronic idiopathic constipation; M54.32 Sciatica, left side; Z79.899 Other long term (current) drug therapy | CPT/HCPCS: 96127; 99212 ==

== ENCOUNTER 2024-11-17 10:05 | Outpatient (REF) | payer OTHER, SELFPAY ==
[2024-11-17 11:23] LABS: Resp Syncy Virus RNA Qual PCR NEGATIVE (Negative); SARS COV2 PCR INHOUSE NEGATIVE (Negative)
== END 2024-11-17 10:06 | disposition home or self-care (01) ==
LOC: HO.LAB 10:05
PROVIDERS: PCP Internal Medicine; Visit Provider Internal Medicine
DX: R09.89 Other specified symptoms and signs involving the circulatory and respiratory systems (principal); Z20.822 Contact with and (suspected) exposure to COVID-19
CPT/HCPCS: 87637

== ENCOUNTER 2024-11-20 11:37 | Outpatient (AMB) | payer OTHER, SELFPAY ==
[2024-11-20 12:10] VITALS: BP 120/62; PULSE 90; TEMP 36.9; O2SAT 97; BMI 34.2
--- NOTE | 2024-11-20 12:10 | AM.OFFWIN_ITS ---
Intake Vital Signs 11/20/24 12:10 Height 5 ft Weight 175 lb BMI 34.2 BP 120/62 Blood Pressure Location Lt brachial Position Sitting Pulse 90 Pulse Source Pulse Oximeter Temp 98.5 F Temp Source Oral Pulse Oximetry (%) 97 Oxygen Delivery Method Room Air Intake Visit Reasons: EP-lt ear pain, sore throat, body ache Intake Note: german speaking pt presents with left ear pain - feels like fluid is stuck, sore throat with minimum pain swallowing beverages, body aches/fatigue Patient Tobacco Use Status: Never used Tobacco Allergies soy (Soy) Allergy (Intermediate, Verified 11/20/24 12:25) LIP SWELLING ( SOY SAUCE ) terbinafine Allergy (Intermediate, Verified 11/20/24 12:25) Rash duloxetine Adverse Reaction (Intermediate, Verified 11/20/24 12:25) hallucinations Do you need a note to return to daycare/school/sports/work: No HPI EP-lt ear pain, sore throat, body ache HPI Details This is a 64-year-old female patient who presents to the walk-in clinic with a 1 1/2 week history of sick symptoms, including dry cough, nasal congestion, fatigue, and left ear pain. Ear pain has been worsening over the last several days. Denies any fevers or GI symptoms. Family members recently had COVID. She tested several days ago with a negative result. [facility] Medical History Mild major depression, single episode Moderate persistent asthma Rheumatoid arthritis Left sided sciatica Left knee pain (~04/13/21) Mild asthma Hypovitaminosis D Pure hypercholesterolemia Essential hypertension Surgical History H/O colonoscopy S/P ORIF (open reduction internal fixation) fracture S/P PATTI-BSO (total abdominal hysterectomy and bilateral salpingo-oophorectomy) History of carpal tunnel release History of tubal ligation Family History Father Colon cancer Mother COPD (chronic obstructive pulmonary disease) Maternal Aunt Breast cancer Social History Household Members: Unknown / Unable to assess Housing: House (currently staying with son due to fall) Alcohol intake: never Comment: medicated in pacu Patient Tobacco Use Status: Never used Tobacco e-Cigarette/Vaping Use: Never Used Second Hand Smoke Exposure: No service: No Current occupational status: disabled Current occupation: rt handed Cognitive needs: No Hearing needs: No Vision needs: No Review of Systems Const All systems reviewed & are unremarkable except as noted in HPI and below Physical Exam Vital Signs: Last Vital Signs Temp 98.5 F 11/20/24 12:10 Pulse 90 11/20/24 12:10 BP 120/62 11/20/24 12:10 Pulse Ox 97 11/20/24 12:10 Oxygen Delivery Method Room Air 11/20/24 12:10 BMI result Body Mass Index 34.2 Const General: cooperative, healthy appearing and no acute distress HEENT Head: Yes normal to inspection and Yes normocephalic Ears: hearing grossly normal bilaterally, TM normal on the right and TM abnormal wth effusion purulent on the left and erythematous on the left General nose exam: Normal external nose present Face and sinus: Yes normal facial exam Throat: Yes posterior oropharynx abnormal (mild erythema) Neck Neck: Yes normal visual inspection and Yes no lymphadenopathy Resp Effort & Inspection: normal respiratory effort Auscultation: clear to auscultation bilaterally Cardio Jugular venous distension: no JVD Palpation: normal PMI Rate: regular rate Rhythm: regular rhythm Heart sounds: S1 normal heart sound present and S2 normal heart sound present Skin General skin exam: no rashes or lesions noted Extrem General: Yes capillary refill normal and Yes no clubbing, cyanosis or edema Psych Appearance: grossly normal Mental Status: mental status grossly normal Speech and movement: Normal speech and movement present Assessment & Plan Assessment & Plan (1) Left otitis media with effusion: Code(s): H65.92 - Unspecified nonsuppurative otitis media, left ear Plan: Rapid strep negative. COVID/flu/RSV several days ago was negative at [facility] [place] [facility]. Started on Augmentin for left OM. Reviewed indications, use, possible side effects. Encouraged conservative measures for remaining sick symptoms, including [id number] cold/flu medication/Tylenol as needed. If she does not improve with time and treatment, she can return to the clinic for further evaluation. Patient verbalizes understanding and agrees to plan. Plumbing Technician #: [id number] Medications: New amoxicillin-pot clavulanate 875-125 mg 1 tab PO BID 14 tabs 0RF 7 days H65.92 - Unspecified nonsuppurative otitis media, left ear Coding Level of Care Code Est Pt Level 4 (96670) Diagnoses Left otitis media with effusion H65.92
== END 2024-11-20 13:11 | disposition home or self-care (01) ==
PROVIDERS: PCP Internal Medicine; Visit Provider Nurse Practitioner Family
DX: H65.92 Unspecified nonsuppurative otitis media, left ear (principal); Z13.9 Encounter for screening, unspecified

== ENCOUNTER → 2024-11-20 11:37 | Outpatient (BNVA) | payer OTHER, SELFPAY | PROVIDERS: PCP Internal Medicine | DX: H65.92 Unspecified nonsuppurative otitis media, left ear (principal) | CPT/HCPCS: 87880; 99212 ==

== ENCOUNTER 2025-02-04 05:54 | Outpatient (REF) | payer OTHER, SELFPAY ==
[2025-02-04 08:00] LABS: Alanine Aminotransferase 39 U/L (0-31); Albumin Level 4.5 g/dL (3.5-5.0); Alkaline Phosphatase 77 U/L (39-117); Anion Gap 12 (12-20); Aspartate Amino Transferase 29 U/L (5-31); Blood Urea Nitrogen 14 mg/dL (9-16); Calcium 9.3 mg/dL (8.4-10.2); Carbon Dioxide 29 mmol/L (22-29); Chloride 106 mmol/L (96-108); Cholesterol 238 mg/dL (<200); Estimated Glomerular Filt Rate > 60; HDL Cholesterol 71 mg/dL (>40); Potassium 3.8 mmol/L (3.3-5.1); Sodium 143 mmol/L (135-145); Total Protein 7.7 g/dL (6.5-8.0); Triglycerides 117 mg/dL (<150)
== END 2025-02-04 05:55 | disposition home or self-care (01) ==
LOC: HO.LAB 05:54
PROVIDERS: PCP Internal Medicine; Visit Provider Internal Medicine
DX: J45.40 Moderate persistent asthma, uncomplicated (principal); E78.5 Hyperlipidemia, unspecified; E55.9 Vitamin D deficiency, unspecified
CPT/HCPCS: 36415; 80053; 80061; 82306

== ENCOUNTER 2025-02-12 08:57 | Outpatient (REF) | payer OTHER, SELFPAY ==
--- NOTE | ~2025-02-12 | MM_ITS ---
EXAMINATION: MM SCREENING DIGITAL BREAST TOMOSYNTHESIS, BILATERAL CLINICAL INFORMATION: Screening. Asymptomatic. COMPARISON: Mammography: Comparison is made with available priors TECHNIQUE: Digital breast mammography with tomosynthesis is performed in both the craniocaudal and mediolateral oblique views along with computer-aided detection (CAD). FINDINGS: There are scattered areas of fibroglandular density. There are no significant masses, abnormal calcifications, or other abnormalities. MM/MM tomosynthesis screening BI IMPRESSION: No mammographic evidence of malignancy. ASSESSMENT: BI-RADS Category 1: Negative RECOMMENDATION: Routine annual mammography screening. 1 year F/U This examination should not preclude the clinical evaluation of a suspicious palpable abnormality. This patient's information was entered into a reminder system with a target due date for their next mammogram. Electronically signed by: Alfreda Boone DO 02/16/2025 09:06 AM MADDY
== END 2025-02-12 08:58 | disposition home or self-care (01) ==
LOC: HO.MAMMO 08:57
PROVIDERS: PCP Internal Medicine; Visit Provider Internal Medicine
DX: Z12.31 Encounter for screening mammogram for malignant neoplasm of breast (principal)
CPT/HCPCS: 77063; 77067

== ENCOUNTER → 2025-02-12 09:15 | Outpatient (BNV) | payer OTHER, SELFPAY | PROVIDERS: PCP Internal Medicine; Visit Provider Internal Medicine | DX: Z12.31 Encounter for screening mammogram for malignant neoplasm of breast (principal) | CPT/HCPCS: 77063; 77067 ==

== ENCOUNTER 2025-02-15 07:15 | Outpatient (AMB) | payer OTHER, SELFPAY ==
[2025-02-15 07:42] VITALS: BP 140/72; PULSE 78; O2SAT 98; BMI 33.6
--- NOTE | 2025-02-15 07:42 | MHC.PC.OV ---
Vital Signs 02/15/25 07:42 Height 5 ft Weight 172 lb BMI 33.6 BP 140/72 H Blood Pressure Location Lt brachial Position Sitting Pulse 78 Pulse Source Pulse Oximeter Pulse Oximetry (%) 98 Oxygen Delivery Method Room Air Intake Visit Reasons: pe Discharge Planner Required: No Accompanied by: Self / Same As Patient Allergies soy (Soy) Allergy (Intermediate, Verified 02/15/25 07:50) LIP SWELLING ( SOY SAUCE ) terbinafine Allergy (Intermediate, Verified 02/15/25 07:50) Rash duloxetine Adverse Reaction (Intermediate, Verified 02/15/25 07:50) hallucinations Medication List - Last Reconciled 02/15/25 by Jania Barrow MD albuterol sulfate 90 mcg/actuation (Ventolin HFA) 2 puffs PO Q4H PRN 30 days amlodipine 5 mg PO DAILY 90 days calcium carbonate 600 mg PO BID 90 days cholecalciferol (vitamin D3) 50 mcg PO DAILY cyclobenzaprine 10 mg PO TID PRN lisinopril 40 mg PO DAILY 90 days naproxen 250 mg PO BID [pillow As directed] polyethylene glycol 3350 (Miralax) 17 grams PO DAILY PRN 30 days rosuvastatin 10 mg PO DAILY 90 days Tobacco use date assessed: 06/24/24 Dental Screening Dental Screen Date: 06/24/24 HPI HPI Comments History of Present Illness Details The patient is a 64-year-old female presenting for a physical examination. She reports being up to date with her colonoscopy, which was performed in 2022 and showed diverticulosis and hemorrhoids. Her last bone density scan was in March 2024, which revealed osteopenia, with the next one scheduled for 2025. A mammogram was done last week, with results currently pending. No need for Pap smear due to hysterectomy for benign reasons. The patient has a history of hypertension, with recent blood pressure readings being borderline. Her medications include amlodipine 5 mg, lisinopril 40 mg, and rosuvastatin 10 mg for cholesterol. Her cholesterol is slightly elevated, but her 10-year risk of a cardiac event is low at 3.0-3.9%. She also uses Flexeril and naproxen as needed for muscle pain, and MiraLAX as needed. Her surgical history includes a tubal ligation, hysterectomy, carpal tunnel release, and surgery for a left foot fracture. She has known allergies to soy, terbinafine, and duloxetine. Recent lab work shows her blood sugar and kidney function are within normal limits. [facility] [place] Medical History Mild major depression, single episode Moderate persistent asthma Rheumatoid arthritis Left sided sciatica Left knee pain (~04/13/21) Mild asthma Hypovitaminosis D Pure hypercholesterolemia Essential hypertension Surgical History H/O colonoscopy S/P ORIF (open reduction internal fixation) fracture S/P PATTI-BSO (total abdominal hysterectomy and bilateral salpingo-oophorectomy) History of carpal tunnel release History of tubal ligation Family History Father Colon cancer Mother COPD (chronic obstructive pulmonary disease) Maternal Aunt Breast cancer Social History Household Members: Unknown / Unable to assess Housing: House (currently staying with son due to fall) Alcohol intake: never Comment: medicated in pacu Patient Tobacco Use Status: Never used Tobacco Tobacco use type: Cigarette e-Cigarette/Vaping Use: Never Used Second Hand Smoke Exposure: No service: No Current occupational status: disabled Current occupation: rt handed Cognitive needs: No Hearing needs: No Vision needs: No Questionnaire PHQ-9 Over the last 2 weeks, how often have you been bothered by any of the following problems? 1. Little interest or pleasure in doing things: not at all 2. Feeling down, depressed, or hopeless: not at all 3. Trouble falling or staying asleep, or sleeping too much: not at all 4. Feeling tired or having little energy: not at all 5. Poor appetite or overeating: not at all 6. Feeling bad about yourself - or that you are a failure or have let yourself or your family down: not at all 7. Trouble concentrating on things, such as reading the newspaper or watching television: not at all 8. Moving or speaking so slowly that other people could have noticed. Or the opposite - being so fidgety or restless that you have been moving around a lot more than usual: not at all 9. Thoughts that you would be better off or of hurting yourself in some way: not at all Total score: 0 Depression Screening Interpretation: Negative Depression Screening Done: Yes 58464 - PHQ-9 Billing: Yes Source: Developed by Drs. Juan Pablo Orellana, Shannon Garcia, Jonathan Westfall and colleagues, with an educational steve from [employer]. Thrive Questionnaire Date Thrive assessed: 10/28/24 I am a: Patient What is your living situation today?: I have a steady place to live Within the past 12 months, did the food you bought not last and you didn't have the money to get more?: Often true Within the past 12 months, did you worry whether your food would run out before you got money to buy more?: Often true Do you have trouble paying for medicines?: No Do you have trouble getting transportation to medical appointments?: No Do you have trouble paying your heating and electricity bill?: No Do you have trouble taking care of your child, family member or friend?: No Do you have trouble with day-to-day activities such as bathing, preparing meals, shopping, managing finances, etc.?: No Are you currently unemployed and looking for a job?: No Are you interested in more education?: No Please select the resources that you would like help with: None Currently or been in a relationship where the following occur: No concerns reported THRIVE Score: 2 AUDIT C Alcohol Use Questionnaire (AUDIT-C) 1. How often do you have a drink containing alcohol?: Never 3. How often do you have six or more drinks on one occasion?: Never Total Score: 0 Score Reviewed/Action Taken: No DAYANA-7 AMB Questionnaire DAYANA-7 Date DAYANA - 7 assessed: 06/24/24 Source: Developed by Drs. Juan Pablo Orellana, Shannon Garcia, Jonathan Westflal and colleagues, with an educational steve from [employer]. Review of Systems Const All systems reviewed & are unremarkable except as noted in HPI and below Card Denies chest pain at rest, Denies chest pain with activity, Denies edema, Denies irregular heart rhythm, Denies claudication, Denies dyspnea, Denies dyspnea on exertion, Denies orthopnea, Denies paroxysmal nocturnal dyspnea and Denies slow heart rate Resp Denies cough, Denies dyspnea and Denies dyspnea on exertion GI Denies abdominal pain, Denies change in bowel habits, Denies excessive flatus, Denies nausea and Denies vomiting Neuro Denies behavioral changes and Denies lack of coordination Psych Denies behavioral changes Physical exam (Primary Care) Vital Signs: Last Vital Signs Pulse 78 02/15/25 07:42 BP 140/72 H 02/15/25 07:42 Pulse Ox 98 02/15/25 07:42 Oxygen Delivery Method Room Air 02/15/25 07:42 BMI result Body Mass Index 33.6 Tobacco/Smoking Status: Tobacco use Status Tobacco use date assessed 06/24/24 02/15/25 07:46 Patient Tobacco Use Status Never used Tobacco 02/15/25 07:46 Tobacco use type Cigarette 02/15/25 07:46 e-Cigarette/Vaping Use Never Used 02/15/25 07:46 PHQ-9: PHQ-9 Score PHQ-9: Total score 0 02/15/25 07:53 Depression Screening Interpretation: Negative Thrive Assessment: Date of Thrive Assessment Date Thrive assessed 10/28/24 02/15/25 07:46 Currently or been in a relationship where the following occur: No concerns reported HENWV Head: Yes normal to inspection, Yes normocephalic and Yes atraumatic Ears: external ears normal Eyes General: appearance normal, both eyes and all related structures Eyelids: Yes eyelids normal Conjunctivae: conjunctivae normal Neck Neck: Yes normal visual inspection and Yes supple Resp Effort & Inspection: normal respiratory effort Auscultation: clear to auscultation bilaterally Cardio Jugular venous distension: no JVD Rate: regular rate Rhythm: regular rhythm Heart sounds: S1 normal heart sound present and S2 normal heart sound present GI Inspection: Yes normal to inspection Palpation (GI): Soft to palpation and nontender Auscultation: normal bowel sounds Skin General skin exam: no rashes or lesions noted Neuro General: no focal motor deficits Extrem General: Yes full ROM Psych Appearance: grossly normal Immunizations Boostrix Tdap 2.5 Lf unit-8 mcg-5 Lf/0.5 mL intramuscular syringe Performing Provider: Jania Barrow MD Performing Location: [facility] [place] [place] [facility] Administered by: Odilia Medina CMA on 02/15/25 08:03 Dose Route Admin Location Dispensed Lot Number Expiration Date NDC [employer] Operator 0.5 mL IM Left Deltoid 0.5 mL [id number] 06/26/27 11399-101-17 [employer] Total Dispensed Waste 0.5 mL 0 % VIS Given Date VIS Provided VIS Publication Date 02/15/25 Single Vaccine 20 Eligibility Eligibility Date Funding Source Not [facility] Eligible 02/15/25 Private Coding Level of Care Code Est Pt Prev Care 40-64y(28340) Diagnoses Physical exam Z00.00 Additional Codes PHQ-9 - 35384 - PHQ-9 Billing: Yes ([id number]) Time Spent (min) 30 Assessment & Plan Assessment & Plan (1) Physical exam: Code(s): Z00.00 - Encounter for general adult medical examination without abnormal findings Category: Medical Plan Plan 1. Encounter for general adult medical examination without abnormal findings Z00.00 The patient will receive a Tdap vaccine today, with the next one due in 2034. Follow-up on pending mammogram results will be conducted. The next bone density scan is scheduled for 2025. Orders: Orders TDaP Immunization Today Z23 - Encounter for immunization
== END 2025-02-15 08:07 | disposition home or self-care (01) ==
LOC: HO.HMCH 07:15
PROVIDERS: PCP Internal Medicine; Visit Provider Internal Medicine
DX: Z23 Encounter for immunization (principal); Z00.00 Encounter for general adult medical examination without abnormal findings

== ENCOUNTER → 2025-02-15 07:15 | Outpatient (BNVA) | payer OTHER, SELFPAY | PROVIDERS: PCP Internal Medicine; Visit Provider Internal Medicine | DX: Z00.00 Encounter for general adult medical examination without abnormal findings (principal); K57.90 Diverticulosis of intestine, part unspecified, without perforation or abscess without bleeding; K64.9 Unspecified hemorrhoids; I10 Essential (primary) hypertension; Z23 Encounter for immunization | CPT/HCPCS: 90471; 90715; 96127; 99396 ==